=== PATIENT | male | born 1935 | race Caucasian/White ===

== ENCOUNTER 2016-09-14 16:23 | Inpatient (IN) | payer MEDICARE, OTHER ==
--- NOTE | 2016-09-14 16:39 | EDM.PDOC ---
ED HPI GENERAL MEDICAL PROBLEM - General Stated Complaint: LEG PAIN, CAN'T GO TO THE BATHROOM Time Seen by Provider: 09/14/16 16:23 Source of Information: Reports: Patient, Family History Limitations: Reports: Altered Mental Status, Physical Impairment - History of Present Illness INITIAL COMMENTS - FREE TEXT/NARRATIVE: 81 years old w m with a history of MD came to the ed because he had no BM for one week and was not able to urinate for one week. Pt is a poor historian. HPI was given by his SO. Pt has a gastric feeding tube for aspiration prevention. No other acute medical issues at this time. Onset: Gradual Onset Date: 09/07/16 Onset Time: 09:00 Duration: Day(s):, Getting Worse Location: Reports: Abdomen Quality: Reports: Pressure Severity: Moderate Improves with: Reports: None Worsens with: Reports: None Associated Symptoms: Reports: Loss of Appetite, Weakness Bilateral Lower Back Pain Score (Numeric/FACES): 4 - Related Data Allergies Allergy/AdvReac Type Severity Reaction Status Date / Time amlodipine besylate Allergy Edema Verified 09/14/16 19:21 [From [facility]] Home Meds: Home Meds Aspirin 325 mg PO DAILY 01/28/14 [History] Carvedilol 50 mg PO BIDMEALS 01/29/14 [History] Levothyroxine Sodium [Synthroid] 75 mcg PO DAILY 01/29/14 [History] Multivitamin [Daily Multiple Vitamin] 1 tab PO DAILY 01/29/14 [History] guaiFENesin [Mucinex] 600 mg PO BID PRN 01/29/14 [History] Amitriptyline [Elavil] 50 mg PO BEDTIME 11/06/15 [History] Carboxymethylcellulose Sodium [Refresh Tears] 1 drop EYEBOTH DAILY 11/06/15 [ History] Cyclobenzaprine [Flexeril] 5 mg PO BID PRN 11/06/15 [History] Lisinopril 30 mg PO DAILY 11/06/15 [History] metFORMIN [Glucophage] 850 mg GTUBE 799,1999 #60 tablet 02/12/16 [Rx] Tamsulosin [Flomax] 0.8 mg PO DAILY 04/17/16 [History] Gabapentin [Neurontin] 1,200 mg PO DAILY@16 09/14/16 [History] Gabapentin [Neurontin] 600 mg GTUBE BID 09/14/16 [History] Acetaminophen [Tylenol Extra Strength] 1,000 mg PO BID 09/15/16 [History] Acetaminophen [Tylenol Extra Strength] 500 mg PO DAILY@1400 09/15/16 [History] Past Medical History HEENT History: Reports: Cataract, Impaired Vision Cardiovascular History: Reports: Hypertension Respiratory History: Reports: None Gastrointestinal History: Reports: None Genitourinary History: Reports: BPH, Retention, Urinary Musculoskeletal History: Reports: None Neurological History: Reports: None Psychiatric History: Reports: None Endocrine/Metabolic History: Reports: Diabetes, Type II, Hypothyroidism Hematologic History: Reports: None Immunologic History: Reports: None Oncologic (Cancer) History: Reports: None Dermatologic History: Reports: None - Infectious Disease History Infectious Disease History: Reports: Chicken Pox, Measles, Mumps, Shingles - Past Surgical History HEENT Surgical History: Reports: Cataract Surgery, Naso-Sinus Surgery GI Surgical History: Reports: Colonoscopy, EGD, Other (See Below) Neurological Surgical History: Reports: Laminectomy, Other (See Below) Musculoskeletal Surgical History: Reports: Other (See Below) Social & Family History - Family History Family Medical History: Noncontributory - Tobacco Use Smoking Status *Q: Never Smoker Second Hand Smoke Exposure: No - Alcohol Use Days Per Week of Alcohol Use: 1 Number of Drinks Per Day: 1 Total Drinks Per Week: 1 - Recreational Drug Use Recreational Drug Use: No Drug Use in Last 12 Months: No - Living Situation & Occupation Occupation: Retired ED ROS GENERAL - Review of Systems Review Of Systems: Unable To Obtain ED EXAM, GI/ABD - Physical Exam Exam: See Below Exam Limited By: Physical Impairment General Appearance: Alert, WD/WN, Mild Distress Eyes: Bilateral: Normal Appearance Ears: Normal External Exam Nose: Normal Inspection Throat/Mouth: Normal Inspection, Normal Lips Head: Atraumatic, Normocephalic Neck: Normal Inspection, Supple, Non-Tender Respiratory/Chest: No Respiratory Distress, Lungs Clear Cardiovascular: Normal Peripheral Pulses GI/Abdominal: Hyperactive Bowel Sounds, Tenderness, Distention, Other (feeding tube in place) (Male) Exam: No Hernia, Deferred Rectal (Males) Exam: Deferred Back Exam: Normal Inspection, Full Range of Motion Extremities: Normal Inspection Neurological: Alert, Oriented, CN II-XII Intact, Normal Cognition, Other (H/O muscular dystrophy Dx'd 2012) Psychiatric: Normal Affect, Normal Mood Skin Exam: Warm Lymphatic: No Adenopathy Course - Vital Signs Text/Narrative:: 81 years old w m with a history of MS came to the ed because he had no BM for one week and was not able to urinate for one week. Pt is a poor historian. HPI was given by his SO. Pt has a gastric feeding tube for aspiration prevention. No other acute medical issues at this time. PE: Tender, distended bowel, gastric feeding tube in place, undbel to ambulate due to h/o Muscular dystrophy. Imaging: abdomen flat/upright: Severe constipation. CXR: NAD Labs: WBV 23K no left shift BUN 35 Cr 0.9 UA is pending Lactic acid result is pending INR 1.14 Impression: H/O MD, Urinary retention, severe constipation, elevated WBC (cause not determined), unable to ambulate, weakness Tx: Hamm placement, Levoquin Reexam: nurs and myself were not able to place a hamm catheter, Consultation: Dr. Cottrell, surgeon, was consulted. He will attempt to place a Hamm catheter or will place a suprapubic catheter Plan: admit to de dios Last Recorded V/S: Last Vital Signs Temp 36.7 C 09/15/16 08:26 Pulse 75 09/15/16 09:21 Resp 18 09/15/16 08:26 BP 105/39 L 09/15/16 09:25 Pulse Ox 96 09/15/16 08:26 - Orders/Labs/Meds Orders: Active Orders 24 hr Category Date Time Status Hamm Catheter Insertion [Insert Urinary Catheter] [OM. Care 09/14/16 17:45 Ordered PC] Q24H Urinary Catheter Assessment [RC] QSHIFT Care 09/14/16 17:38 Active Abdomen 2V AP Flat Upright [CR] Stat Exams 09/14/16 16:35 Taken CXR [Chest 1V Frontal] [CR] Stat Exams 09/14/16 18:16 Taken CULTURE BLOOD [BC] Urgent Lab 09/14/16 18:25 Received CULTURE BLOOD [BC] Urgent Lab 09/14/16 18:30 Received Blood Culture x2 Reflex Set [OM.PC] Urgent Oth 09/14/16 18:18 Ordered Medication Orders Acetaminophen (Tylenol Extra Strength) 1,000 mg PO BID OWEN Acetaminophen (Tylenol Extra Strength) 500 mg PO DAILY@1400 [facility] Amitriptyline HCl (Elavil) 50 mg GTUBE BEDTIME [facility] Artificial Tears (Refresh Tears 0.5%) 0 ml EYEBOTH DAILY [facility] Last Admin: 09/15/16 09:26 Dose: 1 drop Aspirin (Aspirin) 325 mg GTUBE DAILY [facility] Last Admin: 09/15/16 09:23 Dose: 325 mg Carvedilol (Coreg) 50 mg GTUBE BIDMEALS [facility] Last Admin: 09/15/16 09:21 Dose: 50 mg Cyclobenzaprine HCl (Flexeril) 5 mg GTUBE BID PRN PRN Reason: MUSCLE SPASMS Gabapentin (Neurontin) 600 mg GTUBE BID [facility] Last Admin: 09/15/16 09:25 Dose: 600 mg Gabapentin (Neurontin) 1,200 mg GTUBE DAILY@1400 [facility] Guaifenesin (Mucinex) 600 mg PO BID PRN PRN Reason: Congestion Last Admin: 09/15/16 00:47 Dose: 600 mg Levofloxacin/Dextrose 500 mg/ (Premix) 100 mls @ 100 mls/hr IV Q24H [facility] Last Admin: 09/14/16 23:03 Dose: 100 mls/hr Sodium Chloride (Normal Saline) 250 mls @ 100 mls/hr IV ASDIRECTED [facility] Last Admin: 09/14/16 23:33 Dose: 100 mls/hr Levothyroxine Sodium (Levothyroxine) 75 mcg GTUBE ACBREAKFAST [facility] Last Admin: 09/15/16 09:21 Dose: 75 mcg Lisinopril (Prinivil) 30 mg GTUBE DAILY [facility] Last Admin: 09/15/16 09:25 Dose: 30 mg Metformin HCl (Glucophage) 850 mg GTUBE 0800,1999 [facility] Last Admin: 09/15/16 09:23 Dose: 850 mg Multivitamins/Minerals/Vitamin C (Tab-A-Ashlee) 1 tab PO DAILY [facility] Last Admin: 09/15/16 09:27 Dose: 1 tab Sodium Chloride (Saline Flush) 10 ml FLUSH ASDIRECTED PRN PRN Reason: Keep Vein Open Last Admin: 09/14/16 23:32 Dose: 10 ml Tamsulosin HCl (Flomax) 0.8 mg PO DAILY [facility] Last Admin: 09/15/16 09:24 Dose: 0.8 mg Labs: Laboratory Tests 09/14/16 09/14/16 09/14/16 Range/Units 16:45 16:45 16:45 WBC 25.4 H (4.5-12.0) X10-3/uL RBC 5.03 (4.30-5.75) x10(6)uL Hgb 15.2 (11.5-15.5) g/dL Hct 45.6 (30.0-51.3) % MCV 90.6 (80-96) fL MCH 30.2 (27.7-33.6) pg MCHC 33.3 (32.2-35.4) g/dL RDW 13.8 (11.5-15.5) % Plt Count 244 (125-369) X10(3)uL MPV 8.1 (7.4-10.4) fL Add Manual Diff Yes Neutrophils % (Manual) 69 (46-82) % Band Neutrophils % 8 H (0-6) % Lymphocytes % (Manual) 8 L (13-37) % Monocytes % (Manual) 15 H (4-12) % PT 11.5 H (8.7-11.1) INR 1.14 H (0.89-1.13) Sodium 139 (135-145) mmol/L Potassium 4.0 (3.5-5.3) mmol/L Chloride 97 L (100-110) mmol/L Carbon Dioxide 31 H (23-29) mmol/L BUN 35 H D (8-23) mg/dL Creatinine 0.9 (0.6-1.3) mg/dL Est Cr Clr Drug Dosing 67.59 mL/min Estimated GFR (MDRD) > 60 (>60) BUN/Creatinine Ratio 38.9 H (9-20) Glucose 183 H (80-116) mg/dL Lactic Acid (0.5-2.2) mmol/L Calcium 9.8 (8.6-10.2) mg/dL B-Natriuretic Peptide (0-100) pg/mL 09/14/16 09/14/16 Range/Units 16:45 18:30 WBC (4.5-12.0) X10-3/uL RBC (4.30-5.75) x10(6)uL Hgb (11.5-15.5) g/dL Hct (30.0-51.3) % MCV (80-96) fL MCH (27.7-33.6) pg MCHC (32.2-35.4) g/dL RDW (11.5-15.5) % Plt Count (125-369) X10(3)uL MPV (7.4-10.4) fL Add Manual Diff Neutrophils % (Manual) (46-82) % Band Neutrophils % (0-6) % Lymphocytes % (Manual) (13-37) % Monocytes % (Manual) (4-12) % PT (8.7-11.1) INR (0.89-1.13) Sodium (135-145) mmol/L Potassium (3.5-5.3) mmol/L Chloride (100-110) mmol/L Carbon Dioxide (23-29) mmol/L BUN (8-23) mg/dL Creatinine (0.6-1.3) mg/dL Est Cr Clr Drug Dosing mL/min Estimated GFR (MDRD) (>60) BUN/Creatinine Ratio (9-20) Glucose (80-116) mg/dL Lactic Acid 3.0 H (0.5-2.2) mmol/L Calcium (8.6-10.2) mg/dL B-Natriuretic Peptide 261 H (0-100) pg/mL Meds: Medications Generic Name Dose Route Start Last Admin Trade Name Freq PRN Reason Stop Dose Admin Acetaminophen 1,000 mg 09/15/16 21:00 Tylenol Extra Strength PO BID OWEN Acetaminophen 500 mg 09/15/16 14:00 Tylenol Extra Strength PO DAILY@1400 [facility] Amitriptyline HCl 50 mg 09/15/16 21:00 Elavil GTUBE BEDTIME [facility] Artificial Tears 0 ml 09/15/16 09:00 09/15/16 09:26 Refresh Tears 0.5% EYEBOTH 1 drop DAILY [facility] Administration Aspirin 325 mg 09/15/16 09:00 09/15/16 09:23 Aspirin GTUBE 325 mg DAILY [facility] Administration Carvedilol 50 mg 09/15/16 08:00 09/15/16 09:21 Coreg GTUBE 50 mg BIDMEALS [facility] Administration Cyclobenzaprine HCl 5 mg 09/15/16 09:18 Flexeril GTUBE BID PRN MUSCLE SPASMS Gabapentin 600 mg 09/15/16 09:00 09/15/16 09:25 Neurontin GTUBE 600 mg BID OW[facility] Administration Gabapentin 1,200 mg 09/15/16 14:00 Neurontin GTUBE DAILY@1400 [facility] Guaifenesin 600 mg 09/15/16 00:00 09/15/16 00:47 Mucinex PO 600 mg BID PRN Administration Congestion Levofloxacin/Dextrose 500 mg/ 100 mls @ 100 mls/hr 09/14/16 22:36 09/14/16 23 :03 Premix IV 100 mls/hr Q24H [facility] Administration Sodium Chloride 250 mls @ 100 mls/hr 09/14/16 23:15 09/14/16 23:33 Normal Saline IV 100 mls/hr ASDIRECTED [facility] Administration Levothyroxine Sodium 75 mcg 09/15/16 07:30 09/15/16 09:21 Levothyroxine GTUBE 75 mcg ACBREAKFAST [facility] Administration Lisinopril 30 mg 09/15/16 09:00 09/15/16 09:25 Prinivil GTUBE 30 mg DAILY [facility] Administration Metformin HCl 850 mg 09/15/16 00:26 09/15/16 09:23 Glucophage GTUBE 850 mg [facility] Administration Multivitamins/Minerals/Vitamin C 1 tab 09/15/16 09:00 09/15/16 09:27 Tab-A-Ashlee PO 1 tab DAILY [facility] Administration Sodium Chloride 10 ml 09/14/16 23:11 09/14/16 23:32 Saline Flush FLUSH 10 ml ASDIRECTED PRN Administration Keep Vein Open Tamsulosin HCl 0.8 mg 09/15/16 09:00 09/15/16 09:24 Flomax PO 0.8 mg DAILY [facility] Administration Discontinued Medications Generic Name Dose Route Start Last Admin Trade Name Freq PRN Reason Stop Dose Admin Acetaminophen 1,000 mg 09/15/16 09:00 09/15/16 09:27 Tylenol Extra Strength GTUBE 1,000 mg 899,1399,1999 [facility] Administration Amitriptyline HCl 50 mg 09/15/16 21:00 Elavil PO BEDTIME [facility] Aspirin 325 mg 09/15/16 09:00 Aspirin PO DAILY [facility] Carvedilol 50 mg 09/15/16 08:00 Coreg PO BIDMEALS OWEN Carvedilol 50 mg 09/15/16 00:24 09/15/16 00:42 Coreg PO 50 mg BIDMEALS [facility] Administration Carvedilol Confirm 09/15/16 00:40 09/15/16 01:23 Coreg Administered 09/15/16 00:41 Not Given Dose 25 mg .ROUTE .STK-MED ONE Cyclobenzaprine HCl 5 mg 09/15/16 00:00 Flexeril PO BID PRN MUSCLE SPASMS Cyclobenzaprine HCl 5 mg 09/15/16 00:32 09/15/16 00:47 Flexeril GTUBE 5 mg BID PRN Administration MUSCLE SPASMS Gabapentin 1,200 mg 09/15/16 09:00 Neurontin PO DAILY [facility] Guaifenesin 600 mg 09/15/16 09:00 09/15/16 09:25 Mucinex PO Not Given BID [facility] Levofloxacin/Dextrose 500 mg/ 100 mls @ 100 mls/hr 09/14/16 18:30 09/14/16 23 :46 Premix IV Not Given Q24H [facility] Lactulose 20 gm 09/15/16 10:30 Cephulac PO 09/15/16 10:31 ONETIME ONE Levothyroxine Sodium 75 mcg 09/15/16 09:00 Levothyroxine PO DAILY [facility] Lidocaine HCl 5 ml 09/14/16 19:00 09/14/16 19:15 Xylocaine 2% Jelly MUCMEM 09/14/16 19:01 5 ml ONETIME ONE Administration Lidocaine HCl 5 ml 09/14/16 19:40 09/14/16 20:30 Xylocaine 2% Jelly MUCMEM 09/14/16 19:41 5 ml ONETIME ONE Administration Lidocaine HCl Confirm 09/14/16 19:41 09/14/16 23:46 Xylocaine 2% Jelly Administered 09/14/16 19:42 Not Given Dose 5 ml .ROUTE .STK-MED ONE Lisinopril 30 mg 09/15/16 09:00 Prinivil PO DAILY [facility] Magnesium Citrate 296 ml 09/14/16 18:54 09/14/16 19:15 Citrate Of Magnesia PO 09/14/16 18:55 296 ml ONETIME ONE Administration Metformin HCl 850 mg 09/15/16 08:00 Glucophage GTUBE 0800,2000 [facility] Metformin HCl 850 mg 09/15/16 00:54 09/15/16 01:07 Glucophage PO 09/15/16 00:55 850 mg NOW STA Administration Departure - Departure Time of Disposition: 18:26 Disposition: Admitted As Inpatient 67 Condition: fair Clinical Impression: Urinary retention, Prostate enlargement, Muscular dystrophy, Aspiration pneumonia Constipation Qualifiers: Constipation type: slow transit constipation Qualified Code(s): K59.01 - Slow transit constipation - Discharge Information - My Orders Last 24 Hours: My Active Orders 09/14/16 16:35 Abdomen 2V AP Flat Upright [CR] Stat 09/14/16 17:38 Urinary Catheter Assessment [RC] QSHIFT 09/14/16 17:45 Hamm Catheter Insertion [Insert Urinary Catheter] [OM.PC] Q24H 09/14/16 18:16 CXR [Chest 1V Frontal] [CR] Stat 09/14/16 18:18 Blood Culture x2 Reflex Set [OM.PC] Urgent 09/14/16 18:25 CULTURE BLOOD [BC] Urgent 09/14/16 18:30 CULTURE BLOOD [BC] Urgent - Assessment/Plan Last 24 Hours: My Active Orders 09/14/16 16:35 Abdomen 2V AP Flat Upright [CR] Stat 09/14/16 17:38 Urinary Catheter Assessment [RC] QSHIFT 09/14/16 17:45 Hamm Catheter Insertion [Insert Urinary Catheter] [OM.PC] Q24H 09/14/16 18:16 CXR [Chest 1V Frontal] [CR] Stat 09/14/16 18:18 Blood Culture x2 Reflex Set [OM.PC] Urgent 09/14/16 18:25 CULTURE BLOOD [BC] Urgent 09/14/16 18:30 CULTURE BLOOD [BC] Urgent
[2016-09-14] MEDS ORDERED: Levofloxacin/Dextrose 5%-Water 500 MG in Premix Bag 1 BAG IV SCH (18:30)
[2016-09-14] MEDS ORDERED: Magnesium Citrate Solution 296 ML Bottle PO ONE (18:54)
[2016-09-14] MEDS ORDERED: Lidocaine 2% Jelly 5 ML Urojet MUCMEM ONE ×3 (19:00→19:40)
[2016-09-14] MEDS ORDERED: Lidocaine 2% Jelly 5 ML Urojet ONE (19:41)
[2016-09-14] MEDS: Levofloxacin/Dextrose 5%-Water 500 MG in Premix Bag 1 BAG IV SCH (23:03)
[2016-09-14] MEDS: Sodium Chloride 0.9% 10 ML Syringe FLUSH PRN (23:32)
[2016-09-14] MEDS: Sodium Chloride 0.9% 250 ML IV SCH (23:33)
[2016-09-15] MEDS ORDERED: guaiFENesin 600 MG Tab.ER PO PRN
[2016-09-15] MEDS ORDERED: Cyclobenzaprine 10 MG Tab PO PRN
[2016-09-15] MEDS ORDERED: Carvedilol 25 MG Tab PO SCH ×2 (00:24→08:00)
[2016-09-15] MEDS ORDERED: Cyclobenzaprine 10 MG Tab GTUBE PRN (00:32)
[2016-09-15] MEDS ORDERED: Carvedilol 25 MG Tab ONE (00:40)
--- NOTE | 2016-09-15 01:10 | ER ---
DATE OF PROCEDURE: 09/14/2016 This 81-year-old male presented to the emergency room with complaints of urinary retention. Attempts were made by the emergency room staff and emergency room physician to place a Sunshine catheter and despite multiple attempts, this was unsuccessful. I was called to place a urinary catheter for this patient. Examination shows a pleasant elderly male. He is having some lower abdominal discomfort, but is in no acute distress. His abdomen shows lower abdominal distention consistent with a dilated bladder. Attempts were made using sterile technique to insert urinary catheter via the penis. Attempts with a 14-Cameroonian regular catheter and also a coude catheter were attempted, but the catheters would advance to the level of the prostate and would not advance further. The decision was then made to place a suprapubic catheter. Procedure is explained to the patient and he agreed to have this performed. The lower abdomen was prepped with Betadine and then local infiltration of the skin with the Xylocaine is carried out. A small incision was made in the lower midline just above the symphysis pubis. An attempt was first made using a Adjug suprapubic catheter kit. Once the kit had been properly assembled, it is inserted directly into the bladder and even though the bladder was entered, the central obturator would not withdraw from the catheter, so this kit was abandoned. A mSpot suprapubic catheter insertion kit was then selected. The kit was assembled with the 12- Cameroonian Sunshine catheter placed into the advancing obturator. This was then directed through the skin suprapubically into the bladder and once the bladder had been accessed, the advancing obturator needle was removed as well as the central stabilizing device. The Sunshine balloon is inflated and the catheter was noted to drain cloudy urine. Irrigation of the catheter was then carried out with sterile saline and the catheter was noted to irrigate and aspirate easily removing additional cloudy urine. The catheter was then taped to the skin and the patient is admitted and will be cared for per the orders of the hospitalist. /[id number] CASPER/GIGI BOATENG
[2016-09-15] MEDS ORDERED: Gabapentin 600 MG Tab PO SCH (09:00)
[2016-09-15] MEDS ORDERED: Lisinopril 20 MG Tab PO SCH (09:00)
[2016-09-15] MEDS ORDERED: Levothyroxine 75 MCG Tab PO SCH (09:00)
[2016-09-15] MEDS ORDERED: Aspirin 325 MG Tab PO SCH (09:00)
[2016-09-15] MEDS ORDERED: Lisinopril 20 MG Tab GTUBE SCH (09:00)
[2016-09-15] MEDS ORDERED: Gabapentin 600 MG Tab GTUBE SCH (09:00)
[2016-09-15] MEDS ORDERED: Acetaminophen 500 MG Tab GTUBE SCH (09:00)
[2016-09-15] MEDS ORDERED: guaiFENesin 600 MG Tab.ER PO SCH (09:00)
[2016-09-15] MEDS ORDERED: Cyclobenzaprine 5 MG Tab GTUBE PRN (09:18)
[2016-09-15] MEDS: Levothyroxine 75 MCG Tab GTUBE SCH (09:21)
[2016-09-15] MEDS: Carvedilol 25 MG Tab GTUBE SCH ×2 (09:21→17:36)
[2016-09-15] MEDS: Aspirin 325 MG Tab GTUBE SCH (09:23)
[2016-09-15] MEDS: Tamsulosin 0.4 MG Cap.ER PO SCH (09:24)
[2016-09-15] MEDS: Lisinopril 10 MG Tab GTUBE SCH (09:25)
[2016-09-15] MEDS: Gabapentin 600 MG Tab GTUBE SCH ×3 (09:25→21:02)
[2016-09-15] MEDS: Carboxymethylcellulose Sodium 0.5% Ophth Soln 15 ML Bottle EYEBOTH SCH (09:26)
[2016-09-15] MEDS: Multivitamin Tab PO SCH (09:27)
--- NOTE | 2016-09-15 10:27 | PCM.HP ---
H&P History of Present Illness - General Date of Service: 09/15/16 Admit Problem/Dx: Admission Diagnosis/Problem Admission Diagnosis/Problem Urinary tract obstruction Source of Information: Patient History Limitations: Reports: No Limitations - History of Present Illness Initial Comments - Free Text/Narative: 81-year-old male brought in because of acute urinary retention. The brought him in because of pelvic pain and inability to urinate. He has a history of BPH. He also complains of constipation for more than a week.Has a h/ o chronic constipation for more than 2 years. He had a colonoscopy about 10 years ago that was normal ;he was told he does not need another one. He has no fever or chills but in the emergency room an attempt to Sunshine catheter failed necessitating use of a suprapubic catheter. His urine showed packed white cells suggestive of infection, therefore is being admitted for IV antibiotics. He has no fever chills or vomiting. He has a history of laminectomy of the lumbar spine due to stenosis and has difficulty with ambulation and strength of his lower extremities. In addition,he has difficulty with swallowing for an unclear reason and he had a PEG tube in place for tube feedings.Has well controlled DM,and HTN Bilateral Lower Back Pain Score (Numeric/FACES): 4 - Related Data Allergies/Adverse Reactions: Allergies Allergy/AdvReac Type Severity Reaction Status Date / Time amlodipine besylate Allergy Edema Verified 09/14/16 19:21 [From [facility]] Home Medications: Home Meds Aspirin 325 mg PO DAILY 01/28/14 [History] Carvedilol 50 mg PO BIDMEALS 01/29/14 [History] Levothyroxine Sodium [Synthroid] 75 mcg PO DAILY 01/29/14 [History] Multivitamin [Daily Multiple Vitamin] 1 tab PO DAILY 01/29/14 [History] guaiFENesin [Mucinex] 600 mg PO BID PRN 01/29/14 [History] Amitriptyline [Elavil] 50 mg PO BEDTIME 11/06/15 [History] Carboxymethylcellulose Sodium [Refresh Tears] 1 drop EYEBOTH DAILY 11/06/15 [ History] Cyclobenzaprine [Flexeril] 5 mg PO BID PRN 11/06/15 [History] Lisinopril 30 mg PO DAILY 11/06/15 [History] metFORMIN [Glucophage] 850 mg GTUBE 0800,1999 #60 tablet 02/12/16 [Rx] Tamsulosin [Flomax] 0.8 mg PO DAILY 04/17/16 [History] Gabapentin [Neurontin] 1,200 mg PO DAILY@16 09/14/16 [History] Gabapentin [Neurontin] 600 mg GTUBE BID 09/14/16 [History] Acetaminophen [Tylenol Extra Strength] 1,000 mg PO BID 09/15/16 [History] Acetaminophen [Tylenol Extra Strength] 500 mg PO DAILY@1400 09/15/16 [History] Past Medical History HEENT History: Reports: Cataract, Impaired Vision Cardiovascular History: Reports: Hypertension Respiratory History: Reports: None Gastrointestinal History: Reports: Hemorrhoids Genitourinary History: Reports: BPH, Retention, Urinary, Other (See Below) Other Genitourinary History: supra pubic cath put in today 09/14/16 Musculoskeletal History: Reports: Arthritis, Muscular Dystrophy Neurological History: Reports: None Psychiatric History: Reports: Depression Endocrine/Metabolic History: Reports: Diabetes, Type II, Hypothyroidism Hematologic History: Reports: None Immunologic History: Reports: None Oncologic (Cancer) History: Reports: None Dermatologic History: Reports: None - Infectious Disease History Infectious Disease History: Reports: Chicken Pox, Measles, Mumps, Shingles - Past Surgical History Head Surgeries/Procedures: Reports: None HEENT Surgical History: Reports: Cataract Surgery, Naso-Sinus Surgery Cardiovascular Surgical History: Reports: None Respiratory Surgical History: Reports: None GI Surgical History: Reports: Appendectomy, Colonoscopy, EGD, Other (See Below) Other GI Surgeries/Procedures: has feeding tube. Supra pubic cath put in today Male Surgical History: Reports: None Endocrine Surgical History: Reports: None Neurological Surgical History: Reports: Laminectomy Musculoskeletal Surgical History: Reports: Other (See Below) Other Musculoskeletal Surgeries/Procedures:: back surgery. Back injected two weeks ago Oncologic Surgical History: Reports: None Dermatological Surgical History: Reports: None Social & Family History - Family History Family Medical History: Noncontributory - Tobacco Use Smoking Status *Q: Never Smoker Second Hand Smoke Exposure: No - Caffeine Use Caffeine Use: Reports: Coffee - Alcohol Use Days Per Week of Alcohol Use: 1 Number of Drinks Per Day: 1 Total Drinks Per Week: 1 - Recreational Drug Use Recreational Drug Use: No Drug Use in Last 12 Months: No - Living Situation & Occupation Occupation: Retired H&P Review of Systems - Review of Systems: Review Of Systems: ROS reveals no pertinent complaints other than HPI. Exam - Exam Exam: See Below - Vital Signs Vital Signs: Last Vital Signs Temp 98.1 F 09/15/16 08:26 Pulse 75 09/15/16 09:21 Resp 18 09/15/16 08:26 BP 105/39 L 09/15/16 09:25 Pulse Ox 96 09/15/16 08:26 Weight: 86.228 kg - Exam General: Alert, Oriented, 4 HEENT: No: Mucosa Moist & [place] Neck: Supple, Trachea Midline, 2 Lungs: Clear to Auscultation, Normal Respiratory Effort Cardiovascular: Regular Rate, Regular Rhythm Abdomen: Distention, Hypoactive Bowel Sounds. No: McBurney's Sign, Psoas Sign (Male) Exam: No Hernia, Normal Inspection, Normal Prostate, Circumcised Rectal (Males) Exam: Deferred Back Exam: Normal Inspection Extremities: Normal Inspection Skin: Warm Neurological: Cranial Nerves Intact, Reflexes Equal Bilateral Neuro Extensive - Mental Status: Alert, Oriented x3, Normal Mood/Affect, Memory Intact Neuro Extensive - Motor, Sensory, Reflexes: Motor/Sensory Deficits Psychiatric: Alert, Normal Affect, Normal Mood - Patient Data Lab Results last 24 hrs: Laboratory Results - last 24 hr 09/14/16 Range/Units 23:46 Urine Color Red (YELLOW) Urine Appearance Turbid (CLEAR) Urine pH 6.0 (5.0-6.5) Ur Specific [place] 1.010 (1.010-1.025) Urine Protein 500 H (NEGATIVE) mg/dL Urine Glucose (UA) Normal (NEGATIVE) mg/dL Urine Ketones Negative (NEGATIVE) mg/dL Urine Occult Blood Large H (NEGATIVE) Urine Nitrite Negative (NEGATIVE) Urine Bilirubin Negative (NEGATIVE) Urine Urobilinogen Normal (NEGATIVE) mg/dL Ur Leukocyte Esterase Large H (NEGATIVE) Urine RBC Packed H (0) Urine WBC Packed H (0) Ur Squamous Epith Cells (NS,R,O) Result Diagrams: 09/14/16 16:45 09/14/16 16:45 *Q Meaningful Use (ADM) - VTE *Q VTE Criteria *Q: - Stroke *Q Stroke Criteria *Q: - AMI *Q AMI Criteria *Q: - Problem List (1) UTI (urinary tract infection) SNOMED Code(s): 22726324 ICD Code: N39.0 - URINARY TRACT INFECTION, SITE NOT SPECIFIED Status: Acute Priority: High Current Visit: Yes Qualifiers: Hematuria presence: with hematuria (2) Constipation SNOMED Code(s): 70489107 ICD Code: K59.00 - CONSTIPATION, UNSPECIFIED Status: Acute Current Visit : Yes Qualifiers: Constipation type: slow transit constipation Qualified Code(s): K59.01 - Slow transit constipation (3) Prostate enlargement SNOMED Code(s): 825112991 ICD Code: N40.0 - BENIGN PROSTATIC HYPERPLASIA WITHOUT LOWER URINRY TRACT SYMP Status: Acute Priority: Medium Current Visit: Yes (4) Urinary retention SNOMED Code(s): 534326738 ICD Code: R33.9 - RETENTION OF URINE, UNSPECIFIED Status: Acute Current Visit: Yes (5) Diabetes type 2, controlled SNOMED Code(s): 19979951 ICD Code: E11.9 - TYPE 2 DIABETES MELLITUS WITHOUT COMPLICATIONS Status: Chronic Priority: Medium Current Visit: No Problem Details: stable Qualifiers: Diabetes mellitus complication status: without complication 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 continue current managment. Qualifiers: Hypertension type: essential hypertension Qualified Code(s): I10 - Essential (primary) hypertension (7) Hypothyroidism SNOMED Code(s): 19576415 ICD Code: E03.9 - HYPOTHYROIDISM, UNSPECIFIED Status: Acute Current Visit : No Problem Details: on replacement Qualifiers: Hypothyroidism type: acquired Qualified Code(s): E03.9 - Hypothyroidism, unspecified (8) S/P laminectomy SNOMED Code(s): 918813420, 724650203, 548600201 ICD Code: Z98.89 - OTHER SPECIFIED POSTPROCEDURAL STATES * DO NOT USE * Status: Acute Priority: Low Current Visit: No (9) Swallowing difficulty SNOMED Code(s): 49126312, 780047726 ICD Code: R13.10 - DYSPHAGIA, UNSPECIFIED Status: Acute Current Visit: No Problem Details: PEG tube in place Qualifiers: Dysphagia type: unspecified Qualified Code(s): R13.10 - Dysphagia, unspecified Problem List Initiated/Reviewed/Updated: Yes Orders Last 24hrs: Active Orders 24 hr Category Date Time Status Enteral Feedings [RC] Click to Edit Care 09/15/16 00:05 Active BASIC METABOLIC PANEL,BMP [CHEM] AM Lab 09/16/16 05:11 Ordered CBC WITH AUTO DIFF [HEME] AM Lab 09/16/16 05:11 Ordered CULTURE URINE [RM] Routine Lab 09/15/16 00:03 Received Amitriptyline [Elavil] Med 09/15/16 21:00 Active 50 mg GTUBE BEDTIME Aspirin Med 09/15/16 09:00 Active 325 mg GTUBE DAILY Carboxymethylcellulose Sodium [Refresh Tears 0.5%] Med 09/15/16 09:00 Active 0 ml EYEBOTH DAILY Carvedilol [Coreg] Med 09/15/16 08:00 Active 50 mg GTUBE BIDMEALS Cyclobenzaprine [Flexeril] Med 09/15/16 09:18 Active 5 mg GTUBE BID PRN Gabapentin [Neurontin] Med 09/15/16 14:00 Active 1,200 mg GTUBE DAILY@1400 Gabapentin [Neurontin] Med 09/15/16 09:00 Active 600 mg GTUBE BID Levofloxacin/Dextrose 5%-Water [Levaquin in D5W 500 MG/ Med 09/14/16 22:36 Active 100 ML] 500 mg Premix Bag 1 bag IV Q24H Levothyroxine Med 09/15/16 07:30 Active 75 mcg GTUBE ACBREAKFAST Lisinopril [Prinivil] Med 09/15/16 09:00 Active 30 mg GTUBE DAILY Multivitamins [Tab-A-Ashlee] Med 09/15/16 09:00 Active 1 tab PO DAILY Sodium Chloride 0.9% [Normal Saline] 250 ml Med 09/14/16 23:15 Active IV ASDIRECTED Sodium Chloride 0.9% [Saline Flush] Med 09/14/16 23:11 Active 10 ml FLUSH ASDIRECTED PRN Tamsulosin [Flomax] Med 09/15/16 09:00 Active 0.8 mg PO DAILY guaiFENesin [Mucinex] Med 09/15/16 00:00 Active 600 mg PO BID PRN metFORMIN [Glucophage] Med 09/15/16 00:26 Active 850 mg GTUBE Medication Orders Amitriptyline HCl (Elavil) 50 mg GTUBE BEDTIME [facility] Artificial Tears (Refresh Tears 0.5%) 0 ml EYEBOTH DAILY [facility] Last Admin: 09/15/16 09:26 Dose: 1 drop Aspirin (Aspirin) 325 mg GTUBE DAILY [facility] Last Admin: 09/15/16 09:23 Dose: 325 mg Carvedilol (Coreg) 50 mg GTUBE BIDMEALS [facility] Last Admin: 09/15/16 09:21 Dose: 50 mg Cyclobenzaprine HCl (Flexeril) 5 mg GTUBE BID PRN PRN Reason: MUSCLE SPASMS Gabapentin (Neurontin) 600 mg GTUBE BID [facility] Last Admin: 09/15/16 09:25 Dose: 600 mg Gabapentin (Neurontin) 1,200 mg GTUBE DAILY@1400 [facility] Guaifenesin (Mucinex) 600 mg PO BID PRN PRN Reason: Congestion Last Admin: 09/15/16 00:47 Dose: 600 mg Levofloxacin/Dextrose 500 mg/ (Premix) 100 mls @ 100 mls/hr IV Q24H [facility] Last Admin: 09/14/16 23:03 Dose: 100 mls/hr Sodium Chloride (Normal Saline) 250 mls @ 100 mls/hr IV ASDIRECTED [facility] Last Admin: 09/14/16 23:33 Dose: 100 mls/hr Levothyroxine Sodium (Levothyroxine) 75 mcg GTUBE ACBREAKFAST [facility] Last Admin: 09/15/16 09:21 Dose: 75 mcg Lisinopril (Prinivil) 30 mg GTUBE DAILY [facility] Last Admin: 09/15/16 09:25 Dose: 30 mg Metformin HCl (Glucophage) 850 mg GTUBE [facility] Last Admin: 09/15/16 09:23 Dose: 850 mg Multivitamins/Minerals/Vitamin C (Tab-A-Ashlee) 1 tab PO DAILY [facility] Last Admin: 09/15/16 09:27 Dose: 1 tab Sodium Chloride (Saline Flush) 10 ml FLUSH ASDIRECTED PRN PRN Reason: Keep Vein Open Last Admin: 09/14/16 23:32 Dose: 10 ml Tamsulosin HCl (Flomax) 0.8 mg PO DAILY [facility] Last Admin: 09/15/16 09:24 Dose: 0.8 mg Assessment/Plan Comment:: I agree with use of Levaquin IV, and IV fluid resuscitation. Add lactulose 10- 15 mL 3 times a day for constipation. His home medications were continued and I plan to repeat CBC basic metabolic profile and a TSH in the morning.
[2016-09-15] MEDS ORDERED: Lactulose Soln 10 GM/15 ML 30 ML UD Cup PO ONE (10:30)
[2016-09-15] MEDS: Acetaminophen 500 MG Tab PO SCH ×2 (13:49→21:02)
[2016-09-15] MEDS: Sodium Chloride 0.9% 10 ML Syringe FLUSH PRN (21:05)
[2016-09-15] MEDS: Levofloxacin/Dextrose 5%-Water 500 MG in Premix Bag 1 BAG IV SCH (21:40)
[2016-09-16] MEDS: Levothyroxine 75 MCG Tab GTUBE SCH (07:32)
[2016-09-16] MEDS: Carvedilol 25 MG Tab GTUBE SCH ×2 (07:33→17:47)
--- NOTE | 2016-09-16 08:47 | CR ---
INDICATION: Elevated white blood count. CHEST: An AP upright portable view of the chest, 09/14/2016, was compared with 04/17/2016 and 01/28/2014, revealing probable ASHD with mild cardiomegaly. A definite active infiltrate or effusion was not identified. No free air is noted under the hemidiaphragm leaves. Previous areas of pneumonia have resolved. IMPRESSION: 1. No acute process. 2. ASHD. MTDD
--- NOTE | 2016-09-16 08:49 | CR ---
INDICATION: No BM for 1 week. ABDOMEN: Supine and upright views of the abdomen were obtained with four images , 09/14/2016. No comparison abdomen x-rays were available. CT of the abdomen from 07/28/2014 was present for comparison, however. Tilt of the spine to the right is again noted with hypertrophic degenerative changes off vertebral bodies of moderate degree. A mass in the pelvis most likely represents distended urinary bladder. A moderately large amount of stool is suggested in the colon, with an appearance suggesting either a long-term obstructive process or constipation. Findings should be correlated clinically. No other organomegaly or mass lesions were identified. No nonvascular pathologic calcifications were seen. IMPRESSION: Generalized prominence of the colon with prominent amount of stool present, etiology indeterminate. It could be on the basis of a partial or early mechanically obstructive process, constipation, etcetera, and should be correlated clinically. No definite free air was seen. MTDD
[2016-09-16] MEDS: Aspirin 325 MG Tab GTUBE SCH (09:03)
[2016-09-16] MEDS: Gabapentin 600 MG Tab GTUBE SCH ×3 (09:04→20:04)
[2016-09-16] MEDS: Tamsulosin 0.4 MG Cap.ER PO SCH (09:04)
[2016-09-16] MEDS: Lisinopril 10 MG Tab GTUBE SCH (09:05)
[2016-09-16] MEDS: Multivitamin Tab PO SCH (09:05)
[2016-09-16] MEDS: Carboxymethylcellulose Sodium 0.5% Ophth Soln 15 ML Bottle EYEBOTH SCH (09:05)
[2016-09-16] MEDS: Acetaminophen 500 MG Tab PO SCH ×3 (09:08→20:06)
--- NOTE | 2016-09-16 15:02 | PN ---
DATE SEEN: 09/16/2016 SUBJECTIVE: Mr. Martinez is an 81-year-old male admitted with acute urinary retention and placement of suprapubic catheter. He has a feeding tube in place due to issues of muscular dystrophy. Concomitants include diabetes, hypertension. Intake orally has been limited. On IV antibiotics. LABORATORY STUDIES: White count 16,000, hemoglobin 12.1, electrolytes satisfactory. GFR greater than 60. Microbiology, surprisingly urine no growth after one day. EXAM: Gastrostomy tube in good place. ABDOMEN: Benign. Suprapubic in good condition flowing freely. ASSESSMENT: Acute urinary retention. PLAN: Continue suprapubic catheter, IV fluids in place, complementary well being. We will await culture report. Vital signs were documented. /[id number] MIRI/GIGI
[2016-09-16] MEDS: Levofloxacin/Dextrose 5%-Water 500 MG in Premix Bag 1 BAG IV SCH (22:24)
[2016-09-16] MEDS: Sodium Chloride 0.9% 10 ML Syringe FLUSH PRN (22:24)
[2016-09-16] MEDS: Sodium Chloride 0.9% 250 ML IV SCH (22:33)
[2016-09-17 08:06] VITALS: BP 152/82
[2016-09-17] MEDS: Gabapentin 600 MG Tab GTUBE SCH (08:32)
[2016-09-17] MEDS: Tamsulosin 0.4 MG Cap.ER PO SCH (08:32)
[2016-09-17] MEDS: Multivitamin Tab PO SCH (08:33)
[2016-09-17] MEDS: Carvedilol 25 MG Tab GTUBE SCH (08:33)
[2016-09-17] MEDS: Lisinopril 10 MG Tab GTUBE SCH (08:33)
[2016-09-17] MEDS: Levothyroxine 75 MCG Tab GTUBE SCH (08:33)
[2016-09-17] MEDS: Acetaminophen 500 MG Tab PO SCH (08:34)
[2016-09-17] MEDS: Carboxymethylcellulose Sodium 0.5% Ophth Soln 15 ML Bottle EYEBOTH SCH (08:34)
[2016-09-17] MEDS: Aspirin 325 MG Tab GTUBE SCH (08:35)
--- NOTE | 2016-09-18 03:25 | DISCH ---
DISCHARGE DATE: 09/17/2016 DISCHARGE DIAGNOSIS: Acute urinary retention, secondary to benign prostatic hypertrophy. HISTORY: Teodoro Martinez is an 81-year-old male who was admitted to [place] through the ER. Presented because of a pelvic pain, inability to void, Sunshine catheter attempted but unsuccessful, a suprapubic placed by Dr. Esdras Cottrell. Please see admitting history and physical. LABORATORY STUDIES: Though urine looked markedly abnormal, catheter specimen along blood cultures returned negative. No indications for antibiotics upon discharge. CBC revealed elevated white count of 2500, improved to 1600; hemoglobin stable at 15 and 12.1 with hydration. Renal function was stable, without other complicating issue. Chest x-ray revealed no acute process, the patient was stable. Suprapubic catheter was placed, care was provided, and instructions were given to his and family, ready for discharge. MEDICATIONS: Please see med recon list. FOLLOWUP: Have a followup appointment with Dr. Terrazas in 1-2 weeks' duration. /[id number] MIRI/GIGI
== END 2016-09-17 11:45 | disposition home or self-care (01) | DRG 726 ==
LOC: FB.ED 16:23 → FB.MS 18:31
PROVIDERS: ADMIT Family Medicine; ATTEND Family Medicine
DX: N40.1 Benign prostatic hyperplasia with lower urinary tract symptoms (principal); G71.0 Muscular dystrophy; J69.0 Pneumonitis due to inhalation of food and vomit; N39.0 Urinary tract infection, site not specified; R33.8 Other retention of urine; E11.9 Type 2 diabetes mellitus without complications; I10 Essential (primary) hypertension; F32.9 Major depressive disorder, single episode, unspecified; E03.9 Hypothyroidism, unspecified; K59.01 Slow transit constipation; R13.10 Dysphagia, unspecified
CPT/HCPCS: 36415; 51702; 51798; 71010; 74020; 80048; 83605; 83880; 85025; 85610; 87040 ×2; 99285; C2627; 80053; 81001; 84443; 87086; 99284; A9270-GY; J1956; J7050

== ENCOUNTER 2016-09-27 14:39 | Inpatient (IN) | payer MEDICARE, OTHER ==
[2016-09-27] MEDS ORDERED: Levofloxacin 250 MG Tab PO STA (16:31)
--- NOTE | 2016-09-27 16:34 | EDM.PDOC ---
ED HPI GENERAL MEDICAL PROBLEM - General Chief Complaint: General Stated Complaint: FALL Time Seen by Provider: 09/27/16 15:10 Source of Information: Reports: Patient, Family History Limitations: Reports: Physical Impairment - History of Present Illness INITIAL COMMENTS - FREE TEXT/NARRATIVE: 81 years old w m came with his because of frequent falls. Pt was seen recenly here for urinary retention when a suprapubic Sunshine cath was placed. Pt was admitted for 4 days. Onset: Unknown/Unsure Onset Date: 09/27/16 Onset Time: 06:00 Duration: Intermittent Location: Reports: Head, Face, Chest, Generalized Quality: Reports: Ache Severity: Mild Improves with: Reports: None Worsens with: Reports: None - Related Data Allergies Allergy/AdvReac Type Severity Reaction Status Date / Time amlodipine besylate Allergy Edema Verified 09/27/16 15:14 [From [facility]] Home Meds: Home Meds Aspirin 325 mg PO DAILY 01/28/14 [History] Carvedilol 50 mg PO BID 01/29/14 [History] Levothyroxine Sodium [Synthroid] 75 mcg PO DAILY@0600 01/29/14 [History] Multivitamin [Daily Multiple Vitamin] 1 tab PO DAILY 01/29/14 [History] guaiFENesin [Mucinex] 600 mg PO BID 01/29/14 [History] Amitriptyline [Elavil] 50 mg PO BEDTIME 11/06/15 [History] Carboxymethylcellulose Sodium [Refresh Tears] 1 drop EYEBOTH DAILY 11/06/15 [ History] Cyclobenzaprine [Flexeril] 5 mg PO BID 11/06/15 [History] Lisinopril 30 mg PO DAILY 11/06/15 [History] Gabapentin [Neurontin] 1,200 mg PO DAILY@14 09/14/16 [History] Gabapentin [Neurontin] 600 mg GTUBE BID 09/14/16 [History] Acetaminophen [Tylenol Arthritis Pain] 650 mg PO TID@,,09/27/16 [History] Gluc Mcleod Dipo Ch/Jeremy Mcleod/C/Nik [Glucosamine Chondroitin Caplet] 1 tab PO BID [History] Potassium Chloride 20 meq PO TID 09/27/16 [History] Tamsulosin [Flomax] 0.8 mg PO DAILY 09/27/16 [History] metFORMIN [Glucophage] 850 mg GTUBE 199909/27/16 [History] Past Medical History HEENT History: Reports: Cataract, Impaired Vision Cardiovascular History: Reports: Hypertension Respiratory History: Reports: None Gastrointestinal History: Reports: None Genitourinary History: Reports: BPH, Retention, Urinary Other Genitourinary History: supra pubic cath put in today 09/14/16 Musculoskeletal History: Reports: None Neurological History: Reports: None Psychiatric History: Reports: None Endocrine/Metabolic History: Reports: Diabetes, Type II, Hypothyroidism Hematologic History: Reports: None Immunologic History: Reports: None Oncologic (Cancer) History: Reports: None Dermatologic History: Reports: None - Infectious Disease History Infectious Disease History: Reports: Chicken Pox, Measles, Mumps, Shingles - Past Surgical History Head Surgeries/Procedures: Reports: None HEENT Surgical History: Reports: Cataract Surgery, Naso-Sinus Surgery GI Surgical History: Reports: Colonoscopy, EGD, Other (See Below) Neurological Surgical History: Reports: Laminectomy, Other (See Below) Musculoskeletal Surgical History: Reports: Other (See Below) Social & Family History - Family History Family Medical History: Noncontributory - Tobacco Use Smoking Status *Q: Never Smoker Second Hand Smoke Exposure: No - Caffeine Use Caffeine Use: Reports: None - Alcohol Use Days Per Week of Alcohol Use: 1 Number of Drinks Per Day: 1 Total Drinks Per Week: 1 - Recreational Drug Use Recreational Drug Use: No Drug Use in Last 12 Months: No - Living Situation & Occupation Occupation: Retired ED ROS GENERAL - Review of Systems Review Of Systems: See Below Constitutional: Reports: Weakness, Decreased Appetite HEENT: Reports: No Symptoms Respiratory: Reports: Hemoptysis Cardiovascular: Reports: No Symptoms Endocrine: Reports: No Symptoms GI/Abdominal: Reports: No Symptoms : Reports: Urinary Retention Musculoskeletal: Reports: Other (Muscular d) Skin: Reports: No Symptoms Neurological: Reports: Difficulty Walking, Change in Speech, Other (muscular dystrophy) Psychiatric: Reports: No Symptoms Hematologic/Lymphatic: Reports: No Symptoms Immunologic: Reports: No Symptoms ED EXAM, GENERAL - Physical Exam Exam: See Below Exam Limited By: Physical Impairment General Appearance: Alert, WD/WN, Mild Distress Eye Exam: Bilateral Eye: Normal Inspection Ears: Normal External Exam Ear Exam: Bilateral Ear: Auricle Normal Nose: Normal Inspection, Normal Mucosa Throat/Mouth: Normal Inspection, Normal Lips Head: Atraumatic, Normocephalic Neck: Normal Inspection Respiratory/Chest: No Respiratory Distress, Lungs Clear Cardiovascular: Normal Peripheral Pulses, Regular Rate, Rhythm GI/Abdominal: Normal Bowel Sounds, Other (suprapubic cath) (Male) Exam: Deferred Rectal (Males) Exam: Deferred Back Exam: Normal Inspection, Full Range of Motion Extremities: Normal Inspection Neurological: Alert, Oriented, CN II-XII Intact Psychiatric: Normal Affect, Normal Mood Skin Exam: Warm, Dry, Intact, Normal Color, No Rash Lymphatic: No Adenopathy Course - Vital Signs Text/Narrative:: 81 years old w m came with his because of frequent falls. Pt was seen recenly here for urinary retention when a suprapubic Sunshine cath was placed. Pt was admitted for 4 days. PE: gen weakness,Muscular dystrophy, frequent falls Imaging: CXR LLL pneumonia with patchy infiltrate Labs: WBC 14.4 HGB 11.9 Impression: Muscular dystrophy, ELVA, frequent falls, LLL pneumonia Tx: Levoquin Plan: Admit to de dios Last Recorded V/S: Last Vital Signs Temp 37.2 C 09/27/16 15:10 Pulse 69 09/27/16 15:10 Resp 18 09/27/16 15:10 BP 193/70 H 09/27/16 15:10 Pulse Ox 100 09/27/16 15:10 - Orders/Labs/Meds Orders: Active Orders 24 hr Category Date Time Status Oxygen Therapy [RC] PRN Care 09/27/16 17:42 Active VTE/DVT Education [RC] Per Unit Routine Care 09/27/16 17:42 Active Vital Signs [RC] Q4H Care 09/27/16 17:42 Active CXR [Chest 2V] [CR] Stat Exams 09/27/16 17:18 Taken Cervical Spine wo Cont [CT] Stat Exams 09/27/16 14:49 Taken Head wo Cont [CT] Stat Exams 09/27/16 14:49 Ordered CULTURE BLOOD [BC] Urgent Lab 09/27/16 18:38 Ordered CULTURE BLOOD [BC] Urgent Lab 09/27/16 18:38 Ordered LACTIC ACID [CHEM] Stat Lab 09/27/16 18:37 Ordered Levofloxacin/Dextrose 5%-Water [Levaquin in D5W 500 MG/ Med 09/27/16 18:45 Ordered 100 ML] 500 mg Premix Bag 1 bag IV Q24H Blood Culture x2 Reflex Set [OM.PC] Urgent Oth 09/27/16 18:37 Ordered Resuscitation Status Routine Resus Stat 09/27/16 17:42 Ordered Labs: Laboratory Tests 09/27/16 09/27/16 09/27/16 Range/Units 15:08 16:00 16:00 WBC 14.0 H (4.5-12.0) X10-3/uL RBC 3.89 L (4.30-5.75) x10(6)uL Hgb 11.9 (11.5-15.5) g/dL Hct 35.7 (30.0-51.3) % MCV 91.6 (80-96) fL MCH 30.5 (27.7-33.6) pg MCHC 33.3 (32.2-35.4) g/dL RDW 13.2 (11.5-15.5) % Plt Count 190 (125-369) X10(3)uL MPV 7.6 (7.4-10.4) fL Neut % (Auto) 78.4 (46-82) % Lymph % (Auto) 14.4 (13-37) % Weber % (Auto) 4.7 (4-12) % Eos % (Auto) 2 (1.0-5.0) % Baso % (Auto) 0 (0-2) % Neut # (Auto) 10.9 H (1.6-8.3) # Lymph # (Auto) 2.0 (0.6-5.0) # Weber # (Auto) 0.7 (0.0-1.3) # Eos # (Auto) 0.3 (0.0-0.8) # Baso # (Auto) 0.0 (0.0-0.2) # PT 11.0 (8.7-11.1) INR 1.09 (0.89-1.13) Sodium (135-145) mmol/L Potassium (3.5-5.3) mmol/L Chloride (100-110) mmol/L Carbon Dioxide (23-29) mmol/L BUN (8-23) mg/dL Creatinine (0.6-1.3) mg/dL Est Cr Clr Drug Dosing Estimated GFR (MDRD) (>60) BUN/Creatinine Ratio (9-20) Glucose (80-116) mg/dL Calcium (8.6-10.2) mg/dL Urine Color Yellow (YELLOW) Urine Appearance Slightly cloudy (CLEAR) Urine pH 8.0 H (5.0-6.5) Ur Specific [place] 1.010 (1.010-1.025) Urine Protein 30 H (NEGATIVE) mg/dL Urine Glucose (UA) Normal (NEGATIVE) mg/dL Urine Ketones Negative (NEGATIVE) mg/dL Urine Occult Blood Large H (NEGATIVE) Urine Nitrite Negative (NEGATIVE) Urine Bilirubin Negative (NEGATIVE) Urine Urobilinogen 1 H (NEGATIVE) mg/dL Ur Leukocyte Esterase Large H (NEGATIVE) Urine RBC 30-40 H (0) Urine WBC >100 H (0) Ur Squamous Epith Cells Few H (NS,R,O) Urine Bacteria Moderate H (NS) 09/27/16 Range/Units 16:00 WBC (4.5-12.0) X10-3/uL RBC (4.30-5.75) x10(6)uL Hgb (11.5-15.5) g/dL Hct (30.0-51.3) % MCV (80-96) fL MCH (27.7-33.6) pg MCHC (32.2-35.4) g/dL RDW (11.5-15.5) % Plt Count (125-369) X10(3)uL MPV (7.4-10.4) fL Neut % (Auto) (46-82) % Lymph % (Auto) (13-37) % Weber % (Auto) (4-12) % Eos % (Auto) (1.0-5.0) % Baso % (Auto) (0-2) % Neut # (Auto) (1.6-8.3) # Lymph # (Auto) (0.6-5.0) # Weber # (Auto) (0.0-1.3) # Eos # (Auto) (0.0-0.8) # Baso # (Auto) (0.0-0.2) # PT (8.7-11.1) INR (0.89-1.13) Sodium 139 (135-145) mmol/L Potassium 3.7 (3.5-5.3) mmol/L Chloride 100 (100-110) mmol/L Carbon Dioxide 31 H (23-29) mmol/L BUN 15 D (8-23) mg/dL Creatinine 0.4 L (0.6-1.3) mg/dL Est Cr Clr Drug Dosing TNP Estimated GFR (MDRD) > 60 (>60) BUN/Creatinine Ratio 37.5 H (9-20) Glucose 146 H (80-116) mg/dL Calcium 9.1 (8.6-10.2) mg/dL Urine Color (YELLOW) Urine Appearance (CLEAR) Urine pH (5.0-6.5) Ur Specific [place] (1.010-1.025) Urine Protein (NEGATIVE) mg/dL Urine Glucose (UA) (NEGATIVE) mg/dL Urine Ketones (NEGATIVE) mg/dL Urine Occult Blood (NEGATIVE) Urine Nitrite (NEGATIVE) Urine Bilirubin (NEGATIVE) Urine Urobilinogen (NEGATIVE) mg/dL Ur Leukocyte Esterase (NEGATIVE) Urine RBC (0) Urine WBC (0) Ur Squamous Epith Cells (NS,R,O) Urine Bacteria (NS) Meds: Medications Discontinued Medications Generic Name Dose Route Start Last Admin Trade Name Freq PRN Reason Stop Dose Admin Levofloxacin 500 mg 09/27/16 16:31 09/27/16 16:59 Levaquin PO 09/27/16 16:32 500 mg ONETIME STA Administration Departure - Departure Time of Disposition: 17:30 Disposition: Refer to Observation Condition: fair Clinical Impression: UTI (urinary tract infection), Falls frequently, Muscular dystrophy - Discharge Information Referrals: Renato Terrazas MD [Primary Care Provider] - Forms: ED Department Discharge - My Orders Last 24 Hours: My Active Orders 09/27/16 14:49 Cervical Spine wo Cont [CT] Stat Head wo Cont [CT] Stat 09/27/16 17:18 CXR [Chest 2V] [CR] Stat 09/27/16 17:42 Oxygen Therapy [RC] PRN VTE/DVT Education [RC] Per Unit Routine Vital Signs [RC] Q4H Resuscitation Status Routine 09/27/16 18:37 LACTIC ACID [CHEM] Stat Blood Culture x2 Reflex Set [OM.PC] Urgent 09/27/16 18:38 CULTURE BLOOD [BC] Urgent CULTURE BLOOD [BC] Urgent 09/27/16 18:45 Levofloxacin/Dextrose 5%-Water [Levaquin in D5W 500 MG/100 ML] 500 mg Premix Bag 1 bag IV Q24H - Assessment/Plan Last 24 Hours: My Active Orders 09/27/16 14:49 Cervical Spine wo Cont [CT] Stat Head wo Cont [CT] Stat 09/27/16 17:18 CXR [Chest 2V] [CR] Stat 09/27/16 17:42 Oxygen Therapy [RC] PRN VTE/DVT Education [RC] Per Unit Routine Vital Signs [RC] Q4H Resuscitation Status Routine 09/27/16 18:37 LACTIC ACID [CHEM] Stat Blood Culture x2 Reflex Set [OM.PC] Urgent 09/27/16 18:38 CULTURE BLOOD [BC] Urgent CULTURE BLOOD [BC] Urgent 09/27/16 18:45 Levofloxacin/Dextrose 5%-Water [Levaquin in D5W 500 MG/100 ML] 500 mg Premix Bag 1 bag IV Q24H
[2016-09-27] MEDS ORDERED: Levofloxacin/Dextrose 5%-Water 500 MG in Premix Bag 1 BAG IV SCH (18:45)
--- NOTE | 2016-09-27 19:15 | PCM.HP ---
H&P History of Present Illness - General Date of Service: 09/27/16 Admit Problem/Dx: Admission Diagnosis/Problem Admission Diagnosis/Problem Falls Source of Information: Patient History Limitations: Reports: No Limitations - History of Present Illness Initial Comments - Free Text/Narative: This is an 81-year-old male patient who has a muscular dystrophy has had fatigue , cough, hemoptysis. His brought him in because he fell and he is very weak. He is in a wheelchair but she is able to transfer him. He was in the hospital 2 weeks ago for 4 days for UTI. Has indwelling catheter. He cannot feel his bladder at this time. He feels chills but no fevers. - Related Data Allergies/Adverse Reactions: Allergies Allergy/AdvReac Type Severity Reaction Status Date / Time amlodipine besylate Allergy Edema Verified 09/27/16 15:14 [From [facility]] Home Medications: Home Meds Aspirin 325 mg PO DAILY 01/28/14 [History] Carvedilol 50 mg PO BID 01/29/14 [History] Levothyroxine Sodium [Synthroid] 75 mcg PO DAILY@0600 01/29/14 [History] Multivitamin [Daily Multiple Vitamin] 1 tab PO DAILY 01/29/14 [History] guaiFENesin [Mucinex] 600 mg PO BID 01/29/14 [History] Amitriptyline [Elavil] 50 mg PO BEDTIME 11/06/15 [History] Carboxymethylcellulose Sodium [Refresh Tears] 1 drop EYEBOTH DAILY 11/06/15 [ History] Cyclobenzaprine [Flexeril] 5 mg PO BID 11/06/15 [History] Lisinopril 30 mg PO DAILY 11/06/15 [History] Gabapentin [Neurontin] 1,200 mg PO DAILY@14 09/14/16 [History] Gabapentin [Neurontin] 600 mg GTUBE BID 09/14/16 [History] Acetaminophen [Tylenol Arthritis Pain] 650 mg PO TID@,,09/27/16 [History] Gluc Mcleod Dipo Ch/Jeremy Mcleod/C/Nik [Glucosamine Chondroitin Caplet] 1 tab PO BID [History] Potassium Chloride 20 meq PO TID 09/27/16 [History] Tamsulosin [Flomax] 0.8 mg PO DAILY 09/27/16 [History] metFORMIN [Glucophage] 850 mg GTUBE 199909/27/16 [History] Past Medical History HEENT History: Reports: Cataract, Impaired Vision Cardiovascular History: Reports: Hypertension Respiratory History: Reports: None Gastrointestinal History: Reports: None Genitourinary History: Reports: BPH, Retention, Urinary Other Genitourinary History: supra pubic cath put in today 09/14/16 Musculoskeletal History: Reports: None Neurological History: Reports: None Psychiatric History: Reports: None Endocrine/Metabolic History: Reports: Diabetes, Type II, Hypothyroidism Hematologic History: Reports: None Immunologic History: Reports: None Oncologic (Cancer) History: Reports: None Dermatologic History: Reports: None - Infectious Disease History Infectious Disease History: Reports: Chicken Pox, Measles, Mumps, Shingles - Past Surgical History Head Surgeries/Procedures: Reports: None HEENT Surgical History: Reports: Cataract Surgery, Naso-Sinus Surgery GI Surgical History: Reports: Colonoscopy, EGD, Other (See Below) Neurological Surgical History: Reports: Laminectomy, Other (See Below) Musculoskeletal Surgical History: Reports: Other (See Below) Social & Family History - Family History Family Medical History: Noncontributory - Tobacco Use Smoking Status *Q: Never Smoker Second Hand Smoke Exposure: No - Caffeine Use Caffeine Use: Reports: None - Alcohol Use Days Per Week of Alcohol Use: 1 Number of Drinks Per Day: 1 Total Drinks Per Week: 1 - Recreational Drug Use Recreational Drug Use: No Drug Use in Last 12 Months: No - Living Situation & Occupation Occupation: Retired H&P Review of Systems - Review of Systems: Review Of Systems: See Below General: Reports: Chills, Weakness. Denies: Fever HEENT: Reports: No Symptoms Pulmonary: Reports: Cough, Sputum, Hemoptysis. Denies: Shortness of Breath Cardiovascular: Reports: No Symptoms Gastrointestinal: Reports: No Symptoms Genitourinary: Reports: No Symptoms Musculoskeletal: Reports: Other (Chronic weakness due to muscular dystrophy) Skin: Reports: No Symptoms Psychiatric: Reports: No Symptoms Neurological: Reports: No Symptoms Hematologic/Lymphatic: Reports: No Symptoms Immunologic: Reports: No Symptoms Exam - Exam Exam: See Below - Vital Signs Vital Signs: Last Vital Signs Temp 98.9 F 09/27/16 15:10 Pulse 69 09/27/16 15:10 Resp 18 09/27/16 15:10 BP 193/70 H 09/27/16 15:10 Pulse Ox 100 09/27/16 15:10 Weight: 189 lb 1.6 oz - Exam General: Alert, Oriented, Cooperative HEENT: Mucosa Moist & Cleora, TMs Clear Neck: Supple, Trachea Midline Lungs: Clear to Auscultation, Normal Respiratory Effort. No: Crackles, Rales, Rhonchi, Rub Cardiovascular: Regular Rate, Regular Rhythm. No: Bradycardia, Tachycardia Abdomen: Normal Bowel Sounds, Soft. No: Organomegaly, Peritoneal Signs, Distention, Guarding Back Exam: Normal Inspection Extremities: Normal Inspection. No: Edema Skin: Warm, Dry, Intact Neuro Extensive - Mental Status: Alert, Oriented x3, Normal Mood/Affect, Normal Cognition (A) Neuro Extensive - Motor, Sensory, Reflexes: No: Normal Gait Psychiatric: Alert, Normal Mood (That her grandfather when the) - Patient Data Result Diagrams: 09/27/16 16:00 09/27/16 16:00 *Q Meaningful Use (ADM) - VTE *Q VTE Criteria *Q: - Stroke *Q Stroke Criteria *Q: - AMI *Q AMI Criteria *Q: - Problem List (1) Pneumonia SNOMED Code(s): 305055475 ICD Code: J18.9 - PNEUMONIA, UNSPECIFIED ORGANISM Status: Acute Current Visit: Yes (2) Bacteremia SNOMED Code(s): 7916883 ICD Code: R78.81 - BACTEREMIA Status: Acute Current Visit: Yes Problem List Initiated/Reviewed/Updated: Yes (That her grandfather when the baby for Vicodin to) Orders Last 24hrs: Active Orders 24 hr Category Date Time Status Accu Check [Blood Glucose Check, Bedside] [RC] BIDMEALS Care 09/27/16 19:09 Active Consistent Carbohydrate Diet [DIET] Diet 09/27/16 Breakfast Active CULTURE BLOOD [BC] Urgent Lab 09/27/16 18:50 Received CULTURE BLOOD [BC] Urgent Lab 09/27/16 18:55 Received CULTURE URINE [RM] Routine Lab 09/27/16 19:06 Uncollected LACTIC ACID [CHEM] Stat Lab 09/27/16 18:50 Received Acetaminophen [Tylenol Arthritis Pain] Med 09/27/16 20:00 Ordered 650 mg PO TID@08,14,20 Amitriptyline [Elavil] Med 09/27/16 21:00 Ordered 50 mg PO BEDTIME Aspirin Med 09/28/16 09:00 Ordered 325 mg PO DAILY Carboxymethylcellulose Sodium [Refresh Tears 0.5%] Med 09/28/16 09:00 Ordered DOSE ml EYEBOTH DAILY Carvedilol [Coreg] Med 09/27/16 21:00 Ordered 50 mg PO BID Cyclobenzaprine [Flexeril] Med 09/27/16 21:00 Ordered 5 mg PO BID Gabapentin [Neurontin] Med 09/28/16 14:00 Ordered 1,200 mg PO DAILY@14 Gabapentin [Neurontin] Med 09/27/16 21:00 Ordered 600 mg GTUBE BID Gluc Mcleod Dipo Ch/Jeremy Mcleod/C/Nik [Glucosamine Chondroitin Med 09/27/16 21:00 Ordered Caplet] 1 tab PO BID Levofloxacin/Dextrose 5%-Water [Levaquin in D5W 500 MG/ Med 09/27/16 18:45 Active 100 ML] 500 mg Premix Bag 1 bag IV Q24H Levothyroxine Med 09/28/16 06:00 Ordered 75 mcg PO DAILY@0600 Lisinopril [Prinivil] Med 09/28/16 09:00 Ordered 30 mg PO DAILY Multivitamins [Tab-A-Ashlee] Med 09/28/16 09:00 Ordered 1 tab PO DAILY Potassium Chloride [Potassium Chloride] Med 09/27/16 21:00 Ordered 20 meq PO TID Tamsulosin [Flomax] Med 09/28/16 09:00 Ordered 0.8 mg PO DAILY guaiFENesin [Mucinex] Med 09/27/16 21:00 Ordered 600 mg PO BID metFORMIN [Glucophage] Med 09/27/16 20:00 Ordered 850 mg GTUBE 2000 Blood Culture x2 Reflex Set [OM.PC] Urgent Oth 09/27/16 18:37 Ordered Medication Orders Acetaminophen (Tylenol Arthritis Pain) 650 mg PO TID@08,14,20 OWEN Amitriptyline HCl (Elavil) 50 mg PO BEDTIME OWEN Artificial Tears (Refresh Tears 0.5%) ml EYEBOTH DAILY OWEN Aspirin (Aspirin) 325 mg PO DAILY OWEN Carvedilol (Coreg) 50 mg PO BID OWEN Cyclobenzaprine HCl (Flexeril) 5 mg PO BID OWEN Gabapentin (Neurontin) 600 mg GTUBE BID OWEN Gabapentin (Neurontin) 1,200 mg PO DAILY@14 OWEN Guaifenesin (Mucinex) 600 mg PO BID OWEN Levofloxacin/Dextrose 500 mg/ (Premix) 100 mls @ 100 mls/hr IV Q24H OWEN Levothyroxine Sodium (Levothyroxine) 75 mcg PO DAILY@0600 OWEN Lisinopril (Prinivil) 30 mg PO DAILY OWEN Metformin HCl (Glucophage) 850 mg GTUBE 2000 [facility] Multivitamins/Minerals/Vitamin C (Tab-A-Ashlee) 1 tab PO DAILY OWEN Non-Formulary Medication (Gluc Mcleod Dipo Ch/Jeremy Mcleod/C/Nik [Glucosamine Chondroitin Caplet]) 1 tab PO BID OWEN Non-Formulary Medication (Potassium Chloride [Potassium Chloride]) 20 meq PO TID OWEN Tamsulosin HCl (Flomax) 0.8 mg PO DAILY [facility] Assessment/Plan Comment:: 1. Admit the patient. Inpatient. He wants to be a DO NOT RESUSCITATE/DO NOT INTUBATE. 2. Levaquin 500 mg IV daily. 3. Carbohydrate diet and check Accu-Cheks twice a day. 4. Labs in the future but not tomorrow.
[2016-09-27] MEDS ORDERED: Acetaminophen 650 MG Tab.ER PO SCH (20:00)
[2016-09-27] MEDS ORDERED: [UNRECOGNIZED DRUG - OTHER] PO SCH (21:00)
[2016-09-27] MEDS ORDERED: guaiFENesin 600 MG Tab.ER PO SCH (21:00)
[2016-09-27] MEDS: Cyclobenzaprine 10 MG Tab GTUBE SCH (22:01)
[2016-09-27] MEDS: Carvedilol 25 MG Tab GTUBE SCH (22:01)
[2016-09-27] MEDS: Potassium Chloride 20 MEQ Packet GTUBE SCH (22:01)
[2016-09-27] MEDS: Gabapentin 600 MG Tab GTUBE SCH (22:16)
[2016-09-28] MEDS: Levothyroxine 75 MCG Tab GTUBE SCH (06:01)
--- NOTE | 2016-09-28 08:46 | CT ---
INDICATION: Falls. CT HEAD WITHOUT CONTRAST: Serial contiguous 2.5 and 5-mm sections were obtained through the brain without contrast, 09/27/2016. No comparison study was available. Total Exam DLP = 949.36 mGy-cm. Retention cysts are noted in the maxillary antra - one each. Partial opacification - thickening of the linings of multiple left ethmoidal air cells is noted. The mastoid air cells appear to be well aerated. No definite cranial abnormality was seen - no cranial fracture site is suspected. Minimal calcification is suggested in the left vertebral artery. Definite calcifications are noted in the internal carotid arteries bilaterally. There is no shift of midline structures. Ventricles are slightly asymmetrical and slightly prominent, at least in part due to the patients age. The variation in size of the ventricles - right larger - could be on the basis of some loss of brain tissue on the right relatively with a very minimal degree of low-density abnormality in the white matter, raising question of minimal microvascular disease mostly on the right. No bleeding site or hematoma was identified. Cortical sulci are slightly prominent with more prominent sulci in the frontal area and temporal lobe areas - somewhat asymmetrical compared with the parietal area. No other intracranial abnormality was seen. IMPRESSION: 1. No definite acute intracranial abnormality. 2. 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 3. Question minimal microvascular disease especially on the right. 4. Cerebrovascular disease. 5. Possible ethmoidal sinusitis on the left, minimal retention cysts maxillary antra. Cannot exclude a nasal polyp on the right posteriorly, just caudal to the level of the sphenoidal air cells. Report was called to Dr. Maldonado at 1619 hours, 09/27/2016. [facility]
--- NOTE | 2016-09-28 08:47 | PCM.PN ---
- General Info Date of Service: 09/28/16 Admission Dx/Problem (Free Text): Patient states he feels good. He has a little cough with hemoptysis. He denies shortness of breath. Still feels weak. No fevers, chills, chest pain. - Patient Data Vitals - most recent: Last Vital Signs Temp 97.4 F 09/28/16 07:00 Pulse 72 09/28/16 07:00 Resp 18 09/28/16 07:00 BP 142/72 H 09/28/16 07:00 Pulse Ox 96 09/28/16 07:00 Weight - most recent: 189 lb 1.6 oz I&O - last 24 hours: Intake & Output 09/27/16 09/28/16 09/28/16 22:59 06:59 14:59 Intake Total 774 200 Output Total 1050 Balance -276 200 Lab Results last 24 hrs: Laboratory Results - last 24 hr 09/27/16 09/27/16 09/27/16 Range/Units 18:50 21:25 22:15 POC Glucose 247 H D (80-116) mg/dL Lactic Acid 1.1 (0.5-2.2) mmol/L Urine Color Yellow (YELLOW) Urine Appearance Clear (CLEAR) Urine pH 8.0 H (5.0-6.5) Ur Specific [place] 1.010 (1.010-1.025) Urine Protein Negative (NEGATIVE) mg/dL Urine Glucose (UA) >1000 H (NEGATIVE) mg/dL Urine Ketones Negative (NEGATIVE) mg/dL Urine Occult Blood Negative (NEGATIVE) Urine Nitrite Negative (NEGATIVE) Urine Bilirubin Negative (NEGATIVE) Urine Urobilinogen Normal (NEGATIVE) mg/dL Ur Leukocyte Esterase Moderate H (NEGATIVE) Urine RBC 0-5 (0) Urine WBC 20-30 H (0) Ur Squamous Epith Cells Rare (NS,R,O) Urine Bacteria Moderate H (NS) 09/28/16 Range/Units 06:07 POC Glucose 135 H D (80-116) mg/dL Lactic Acid (0.5-2.2) mmol/L Urine Color (YELLOW) Urine Appearance (CLEAR) Urine pH (5.0-6.5) Ur Specific [place] (1.010-1.025) Urine Protein (NEGATIVE) mg/dL Urine Glucose (UA) (NEGATIVE) mg/dL Urine Ketones (NEGATIVE) mg/dL Urine Occult Blood (NEGATIVE) Urine Nitrite (NEGATIVE) Urine Bilirubin (NEGATIVE) Urine Urobilinogen (NEGATIVE) mg/dL Ur Leukocyte Esterase (NEGATIVE) Urine RBC (0) Urine WBC (0) Ur Squamous Epith Cells (NS,R,O) Urine Bacteria (NS) Med Orders - Current: Current Medications Amitriptyline HCl (Elavil) 50 mg GTUBE BEDTIME [facility] Last Admin: 09/27/16 22:16 Dose: 50 mg Artificial Tears (Refresh Tears 0.5%) 0 ml EYEBOTH DAILY [facility] Aspirin (Aspirin) 325 mg GTUBE DAILY [facility] Carvedilol (Coreg) 50 mg GTUBE BID [facility] Last Admin: 09/27/16 22:01 Dose: 50 mg Cyclobenzaprine HCl (Flexeril) 5 mg GTUBE BID [facility] Last Admin: 09/27/16 22:01 Dose: 5 mg Gabapentin (Neurontin) 600 mg GTUBE BID [facility] Last Admin: 09/27/16 22:16 Dose: 600 mg Gabapentin (Neurontin) 1,200 mg GTUBE DAILY@14 [facility] Glucosamine/Chondroitin (Glucosamine-Chondroitin 500-400 Capsule) 1 cap .XX BID [facility] Levofloxacin/Dextrose 500 mg/ (Premix) 100 mls @ 100 mls/hr IV Q24H [facility] Levothyroxine Sodium (Levothyroxine) 75 mcg GTUBE DAILY@0600 [facility] Last Admin: 09/28/16 06:01 Dose: 75 mcg Lisinopril (Prinivil) 30 mg GTUBE DAILY [facility] Metformin HCl (Glucophage) 850 mg GTUBE 2000 [facility] Last Admin: 09/27/16 22:01 Dose: 850 mg Multivitamins/Minerals/Vitamin C (Tab-A-Ashlee) 1 tab PO DAILY [facility] Potassium Chloride (Klor-Con) 20 meq GTUBE TID [facility] Last Admin: 09/27/16 22:01 Dose: 20 meq Tamsulosin HCl (Flomax) 0.8 mg .XX DAILY [facility] Discontinued Medications Acetaminophen (Tylenol Arthritis Pain) 650 mg PO TID@08,14,20 [facility] Guaifenesin (Mucinex) 600 mg PO BID [facility] Last Admin: 09/28/16 02:34 Dose: Not Given Levofloxacin (Levaquin) 500 mg PO ONETIME STA Stop: 09/27/16 16:32 Last Admin: 09/27/16 16:59 Dose: 500 mg Non-Formulary Medication (Gluc Mcleod Dipo Ch/Jeremy Mcleod/C/Nik [Glucosamine Chondroitin Caplet]) 1 tab PO BID [facility] Last Admin: 09/28/16 02:34 Dose: Not Given - Exam General: alert, oriented, cooperative Lungs: Normal respiratory effort, Crackles (Bases) Cardiovascular: Regular Rate, Regular Rhythm, No Murmurs Extremities: no edema - Problem List & Annotations (1) Pneumonia SNOMED Code(s): 573826074 Code(s): J18.9 - PNEUMONIA, UNSPECIFIED ORGANISM Status: Acute Current Visit: Yes (2) Bacteriuria SNOMED Code(s): 35622311 Code(s): R82.71 - BACTERIURIA Status: Acute Current Visit: Yes (3) Palliative care status SNOMED Code(s): 606027975 Code(s): Z51.5 - ENCOUNTER FOR PALLIATIVE CARE Status: Acute Current Visit: Yes - Problem List Review Problem List Initiated/Reviewed/Updated: Yes - My Orders Last 24 Hours: My Active Orders 09/27/16 19:09 Accu Check [Blood Glucose Check, Bedside] [RC] BIDMEALS 09/27/16 20:00 metFORMIN [Glucophage] 850 mg GTUBE 199909/27/16 21:00 Amitriptyline [Elavil] 50 mg GTUBE BEDTIME Carvedilol [Coreg] 50 mg GTUBE BID Cyclobenzaprine [Flexeril] 5 mg GTUBE BID Gabapentin [Neurontin] 600 mg GTUBE BID Potassium Chloride [Klor-Con] 20 meq GTUBE TID 09/27/16 21:25 CULTURE URINE [RM] Routine 09/28/16 06:00 Levothyroxine 75 mcg GTUBE DAILY@0600 09/28/16 08:44 Consult to Occupational Therapy [OT Evaluation and Treatment] [CONS] Routine 09/28/16 08:45 Consult to Physical Therapy [PT Evaluation and Treatment] [CONS] Routine 09/28/16 09:00 Aspirin 325 mg GTUBE DAILY Carboxymethylcellulose Sodium [Refresh Tears 0.5%] 0 ml EYEBOTH DAILY Chondroitin/Glucosamine [Glucosamine-Chondroitin 500-400 Capsule] 1 cap .XX BID Lisinopril [Prinivil] 30 mg GTUBE DAILY Multivitamins [Tab-A-Ashlee] 1 tab PO DAILY Tamsulosin [Flomax] 0.8 mg .XX DAILY 09/28/16 14:00 Gabapentin [Neurontin] 1,200 mg GTUBE DAILY@09/28/16 Breakfast Tube Feeding Adult Diet [DIET] - Plan Plan:: 1. PT/OT evaluation. 2. Continue IV antibiotics.
--- NOTE | 2016-09-28 08:58 | CT ---
INDICATION: Fall. CT CERVICAL SPINE: Spiral 2.5-mm axial sections were obtained through the cervical spine with sagittal and coronal reconstructions. Total Exam DLP = 490.29 mGy-cm. Anterior flowing hyperostotic changes are noted from C3 through T2, compatible with DISH. Degenerative disk disease is suggested at C2-3, C3-4, C4-5, C5-6, to a lesser extent at C6-7 and also at C7-T1. Narrowing of neural foramina is noted to varying degrees at all levels, but most severely at C3-4, C4-5, and C5-6, with C5-6 less prominent on the right than on the left. Some narrowing is also noted at C2-3 on the left. Sclerosis and hypertrophic change is noted at the uncinate joints at all levels. The odontoid appears to be intact without evidence of an acute fracture or dislocation identified. Bone density appeared to be normal. Prevertebral space appeared to be normal. IMPRESSION: 1. No definite acute fracture or dislocation, although it is difficult to entirely exclude chip fracture fragment at hypertrophic change anteriorly - right laterally at the C2-3 level. This finding should not be of critical or significant clinical importance. 2. DISH. 3. Diffuse degenerative disk disease and hypertrophic degenerative change with narrowing of neural foramina as noted above. Report was called to Dr. Maldonado at 1619 hours, 09/27/2016. [facility]
[2016-09-28] MEDS ORDERED: Aspirin 325 MG Tab PO SCH (09:00)
[2016-09-28] MEDS ORDERED: Chondroitin/Glucosamine Cap SCH (09:00)
--- NOTE | 2016-09-28 09:05 | CR ---
INDICATION: Hemoptysis CHEST: PA and lateral views of the chest were obtained 09/27/2016 and compared with 09/14/2016, revealing consolidating infiltration in the left lower lobe. No definite pleural effusion is seen. This appearance suggests a pneumonia. Findings are also compatible with a degree of COPD. DISH is suggested with flowing hyperostotic changes in the upper middle through lower middle thoracic spine. The heart appears slightly generous in size, but is emphasized by relatively poor inspiration. The aorta is somewhat calcified in the arch area and mildly tortuous. There is also a minimal dextroconvex scoliosis suggested in the thoracic spine. IMPRESSION: 1. Pneumonia consolidating, no pleuritis, left lower lobe. 2. Probable COPD. 3. Probable ASHD. 4. DISH, scoliosis. Report was called to Dr. Maldonado at approximately 1835 hours, 09/27/2016. [facility]
[2016-09-28] MEDS: Aspirin 325 MG Tab GTUBE SCH (09:16)
[2016-09-28] MEDS: Cyclobenzaprine 10 MG Tab GTUBE SCH ×2 (09:16→20:32)
[2016-09-28] MEDS: Carvedilol 25 MG Tab GTUBE SCH ×2 (09:16→20:26)
[2016-09-28] MEDS: Potassium Chloride 20 MEQ Packet GTUBE SCH ×3 (09:17→20:32)
[2016-09-28] MEDS: Gabapentin 600 MG Tab GTUBE SCH ×3 (09:17→20:32)
[2016-09-28] MEDS: Tamsulosin 0.4 MG Cap.ER SCH (09:17)
[2016-09-28] MEDS: Lisinopril 10 MG Tab GTUBE SCH (09:17)
[2016-09-28] MEDS: Carboxymethylcellulose Sodium 0.5% Ophth Soln 15 ML Bottle EYEBOTH SCH (09:34)
[2016-09-28] MEDS ORDERED: Sodium Chloride 0.9% 10 ML Syringe FLUSH PRN (13:01)
[2016-09-28] MEDS: Acetaminophen Soln 650 MG/20.3 ML UD Cup PO SCH ×2 (15:06→20:32)
[2016-09-28] MEDS ORDERED: Bisacodyl 10 MG Supp RECTAL PRN (17:19)
[2016-09-28] MEDS ORDERED: Sodium Chloride 0.9% 250 ML IV SCH (18:00)
[2016-09-28] MEDS ORDERED: Levofloxacin/Dextrose 5%-Water 500 MG in Premix Bag 1 BAG IV SCH (18:00)
[2016-09-29] MEDS: Levothyroxine 75 MCG Tab GTUBE SCH (06:05)
--- NOTE | 2016-09-29 08:29 | PCM.PN ---
- General Info Date of Service: 09/29/16 Admission Dx/Problem (Free Text): Patient states that his cough is improved. He denies shortness of breath, fevers, chills. He states he was having some nasal congestion but that was better last night. The nurses state he still is a two-person transfer or a Halina lift. - Patient Data Vitals - most recent: Last Vital Signs Temp 97.5 F 09/29/16 08:00 Pulse 81 09/29/16 08:00 Resp 18 09/29/16 08:00 BP 161/82 H 09/29/16 08:00 Pulse Ox 96 09/29/16 08:00 Weight - most recent: 189 lb 1.6 oz I&O - last 24 hours: Intake & Output 09/28/16 09/29/16 09/29/16 22:59 06:59 14:59 Intake Total 830 50 Output Total 325 425 Balance 505 -375 Lab Results last 24 hrs: Laboratory Results - last 24 hr 09/28/16 09/29/16 Range/Units 17:27 06:17 POC Glucose 244 H D 141 H D (80-116) mg/dL [place] Results last 24 hrs: Microbiology 09/27/16 18:55 Aerobic Blood Culture - Preliminary Blood - Venous - Lab Draw NO GROWTH AFTER 1 DAY Anaerobic Blood Culture - Preliminary NO GROWTH AFTER 1 DAY 09/27/16 18:50 Aerobic Blood Culture - Preliminary Blood - Venous NO GROWTH AFTER 1 DAY Anaerobic Blood Culture - Preliminary NO GROWTH AFTER 1 DAY 09/27/16 21:25 Urine Culture - Preliminary Urine, Sunshine Cath (Indwelling) Gram Positive Cocci Med Orders - Current: Current Medications Acetaminophen (Tylenol) 650 mg PO TID@0900,1400,2100 [facility] Last Admin: 09/28/16 20:32 Dose: 650 mg Amitriptyline HCl (Elavil) 50 mg GTUBE BEDTIME [facility] Last Admin: 09/28/16 20:31 Dose: 50 mg Artificial Tears (Refresh Tears 0.5%) 0 ml EYEBOTH DAILY [facility] Last Admin: 09/28/16 09:34 Dose: 1 drop Aspirin (Aspirin) 325 mg GTUBE DAILY [facility] Last Admin: 09/28/16 09:16 Dose: 325 mg Bisacodyl (Dulcolax) 10 mg RECTAL DAILY PRN PRN Reason: Constipation Carvedilol (Coreg) 50 mg GTUBE BID [facility] Last Admin: 09/28/16 20:26 Dose: 50 mg Cyclobenzaprine HCl (Flexeril) 5 mg GTUBE BID [facility] Last Admin: 09/28/16 20:32 Dose: 5 mg Gabapentin (Neurontin) 600 mg GTUBE BID [facility] Last Admin: 09/28/16 20:32 Dose: 600 mg Gabapentin (Neurontin) 1,200 mg GTUBE DAILY@14 [facility] Last Admin: 09/28/16 15:06 Dose: 1,200 mg Glucosamine/Chondroitin (Glucosamine-Chondroitin 500-400 Capsule) 1 cap .XX BID [facility] Sodium Chloride (Normal Saline) 250 mls @ 100 mls/hr IV ASDIRECTED [facility] Last Admin: 09/28/16 18:23 Dose: 100 mls/hr Levothyroxine Sodium (Levothyroxine) 75 mcg GTUBE DAILY@0600 [facility] Last Admin: 09/29/16 06:05 Dose: 75 mcg Lisinopril (Prinivil) 30 mg GTUBE DAILY [facility] Last Admin: 09/28/16 09:17 Dose: 30 mg Metformin HCl (Glucophage) 850 mg GTUBE 2000 [facility] Last Admin: 09/28/16 20:26 Dose: 850 mg Multivitamins/Folic Acid/Vitamin C (Centrum) 15 ml PO DAILY [facility] Potassium Chloride (Klor-Con) 20 meq GTUBE TID [facility] Last Admin: 09/28/16 20:32 Dose: 20 meq Tamsulosin HCl (Flomax) 0.8 mg .XX DAILY [facility] Last Admin: 09/28/16 09:17 Dose: 0.8 mg Discontinued Medications Acetaminophen (Tylenol Arthritis Pain) 650 mg PO TID@08,14,20 [facility] Guaifenesin (Mucinex) 600 mg PO BID [facility] Last Admin: 09/28/16 02:34 Dose: Not Given Levofloxacin/Dextrose 500 mg/ (Premix) 100 mls @ 100 mls/hr IV Q24H [facility] Last Admin: 09/28/16 18:24 Dose: 100 mls/hr Levofloxacin (Levaquin) 500 mg PO ONETIME STA Stop: 09/27/16 16:32 Last Admin: 09/27/16 16:59 Dose: 500 mg Non-Formulary Medication (Gluc Mcleod Dipo Ch/Jeremy Mcleod/C/Nik [Glucosamine Chondroitin Caplet]) 1 tab PO BID [facility] Last Admin: 09/28/16 02:34 Dose: Not Given Sodium Chloride (Saline Flush) 10 ml FLUSH ASDIRECTED PRN PRN Reason: Keep Vein Open Last Admin: 09/28/16 20:06 Dose: 10 ml - Exam General: alert, oriented, cooperative Lungs: Clear to auscultation, Normal respiratory effort. No: Crackles, Rales, Rhonchi Cardiovascular: Regular Rate, Regular Rhythm, No Murmurs Extremities: no edema - Problem List & Annotations (1) Pneumonia SNOMED Code(s): 421291055 Code(s): J18.9 - PNEUMONIA, UNSPECIFIED ORGANISM Status: Acute Current Visit: Yes (2) Palliative care status SNOMED Code(s): 051945274 Code(s): Z51.5 - ENCOUNTER FOR PALLIATIVE CARE Status: Acute Current Visit: Yes (3) UTI (urinary tract infection) SNOMED Code(s): 65645226 Code(s): N39.0 - URINARY TRACT INFECTION, SITE NOT SPECIFIED Status: Acute Current Visit: Yes - Problem List Review Problem List Initiated/Reviewed/Updated: Yes - My Orders Last 24 Hours: My Active Orders 09/28/16 08:44 Consult to Occupational Therapy [OT Evaluation and Treatment] [CONS] Routine 09/28/16 08:45 Consult to Physical Therapy [PT Evaluation and Treatment] [CONS] Routine 09/28/16 09:00 Aspirin 325 mg GTUBE DAILY Carboxymethylcellulose Sodium [Refresh Tears 0.5%] 0 ml EYEBOTH DAILY Chondroitin/Glucosamine [Glucosamine-Chondroitin 500-400 Capsule] 1 cap .XX BID Lisinopril [Prinivil] 30 mg GTUBE DAILY Tamsulosin [Flomax] 0.8 mg .XX DAILY 09/28/16 13:01 Sodium Chloride 0.9% [Saline Flush] 10 ml FLUSH ASDIRECTED PRN Saline Lock Insert [OM.PC] Routine 09/28/16 14:00 Gabapentin [Neurontin] 1,200 mg GTUBE DAILY@14 09/28/16 14:30 Acetaminophen [Tylenol] 650 mg PO TID@0900,1400,2100 09/28/16 17:19 Bisacodyl [Dulcolax] 10 mg RECTAL DAILY PRN 09/28/16 18:00 Sodium Chloride 0.9% [Normal Saline] 250 ml IV ASDIRECTED 09/29/16 08:26 Convert IV to Saline Lock [OM.PC] Routine 09/29/16 08:30 Levofloxacin [Levaquin] 500 mg PO Q24H 09/29/16 09:00 Multivitamins with Iron/Min [Centrum] 15 ml PO DAILY - Plan Plan:: 1. change Levaquin to by mouth. 2. Saline lock IV. 3. He is growing out gram-positive cocci in his urine. Wait for identification and sensitivity this was begun later today. 4. Social service to continue on working on patient discharge. Other he is going home with daughter or with help. That's what I've been told.
[2016-09-29] MEDS: Aspirin 325 MG Tab GTUBE SCH (08:46)
[2016-09-29] MEDS: Carvedilol 25 MG Tab GTUBE SCH ×2 (08:46→20:17)
[2016-09-29] MEDS: Tamsulosin 0.4 MG Cap.ER SCH (08:47)
[2016-09-29] MEDS: Potassium Chloride 20 MEQ Packet GTUBE SCH ×3 (08:47→20:18)
[2016-09-29] MEDS: Gabapentin 600 MG Tab GTUBE SCH ×3 (08:47→20:19)
[2016-09-29] MEDS: Acetaminophen Soln 650 MG/20.3 ML UD Cup PO SCH ×3 (08:47→20:18)
[2016-09-29] MEDS: Carboxymethylcellulose Sodium 0.5% Ophth Soln 15 ML Bottle EYEBOTH SCH (08:47)
[2016-09-29] MEDS: Lisinopril 10 MG Tab GTUBE SCH (08:47)
[2016-09-29] MEDS: Cyclobenzaprine 10 MG Tab GTUBE SCH ×2 (08:47→20:18)
[2016-09-29] MEDS ORDERED: Multivitamins with Minerals and Iron Liquid ML 240 ML Bottle PO SCH (09:00)
[2016-09-29] MEDS ORDERED: Multivitamins with Minerals and Iron Liquid ML 240 ML Bottle PO ONE ×2 (09:00→09:44)
--- NOTE | 2016-09-29 17:37 | PCM.SN ---
- Free Text/Narrative Note: Urine culture reviewed. Continue Levaquin and start Bactrim DS 1 by mouth twice a day.
[2016-09-29] MEDS ORDERED: Sulfamethoxazole/Trimethoprim 800-160 MG Tab PO SCH (17:45)
[2016-09-29] MEDS ORDERED: Levofloxacin 500 MG Tab PO SCH (18:00)
[2016-09-30] MEDS: Levothyroxine 75 MCG Tab GTUBE SCH (05:43)
[2016-09-30] MEDS ORDERED: Lactulose Soln 10 GM/15 ML 15 ML UD Cup PO SCH (09:00)
[2016-09-30] MEDS ORDERED: Multivitamins with Minerals and Iron Liquid ML 240 ML Bottle PO SCH (09:00)
[2016-09-30] MEDS ORDERED: Levofloxacin 500 MG Tab PO SCH (09:45)
[2016-09-30] MEDS: Tamsulosin 0.4 MG Cap.ER SCH (09:53)
[2016-09-30] MEDS: Carvedilol 25 MG Tab GTUBE SCH (09:53)
[2016-09-30] MEDS: Carboxymethylcellulose Sodium 0.5% Ophth Soln 15 ML Bottle EYEBOTH SCH (09:54)
[2016-09-30] MEDS: Lisinopril 10 MG Tab GTUBE SCH (09:54)
[2016-09-30] MEDS: Cyclobenzaprine 10 MG Tab GTUBE SCH (09:55)
[2016-09-30] MEDS: Aspirin 325 MG Tab GTUBE SCH (09:55)
[2016-09-30 09:56] VITALS: BP 152/78
[2016-09-30] MEDS: Acetaminophen Soln 650 MG/20.3 ML UD Cup PO SCH (09:56)
[2016-09-30] MEDS: Gabapentin 600 MG Tab GTUBE SCH (09:56)
[2016-09-30] MEDS: Potassium Chloride 20 MEQ Packet GTUBE SCH (09:56)
[2016-09-30] MEDS ORDERED: Lactulose Soln 10 GM/15 ML 15 ML UD Cup GTUBE SCH ×2 (10:00→10:08)
--- NOTE | 2016-09-30 13:16 | PN ---
DATE SEEN: 09/30/2016 REASON FOR VISIT: Pneumonia. HISTORY OF PRESENT ILLNESS: This is an 81-year-old male, who was admitted for pneumonia. He feels better this morning. He also has a history of lumbar stenosis status post decompression and muscular dystrophy with weakness. CHIEF COMPLAINT: He also has difficulty swallowing and he has had a PEG for the last 6 to 8 months. He does not feel strong enough to go home and he thinks he might benefit from physical and occupation rehabilitation in a swing bed status. REVIEW OF SYSTEMS: No fever or chills. He complains of constipation. No nausea or vomiting. MEDICATIONS: See nurse's notes. ALLERGIES: Reviewed. PHYSICAL EXAMINATION: VITAL SIGNS: Blood pressure is 155/77, temperature is normal, and pulse is 61. ENT: Negative. NECK: Supple. CHEST: Clear. HEART: Regular rate and rhythm. ABDOMEN: Soft. EXTREMITIES: No edema. LABORATORY DATA: Urine culture grew more than 100,000 MRSA. No new labs today. IMPRESSION: 1. Urinary tract infection. 2. Community-acquired pneumonia. 3. Status post discectomy due to lumbar stenosis. 4. Type 2 diabetes. 5. Dysphagia. 6. PEG tube in place. 7. Physical deconditioning. 8. History of muscular dystrophy. PLAN: The patient will need a wheelchair and a power lift at home eventually. For now, I propose discharged to swing bed on Levaquin and Bactrim. For constipation, I will order lactulose to see if this improves his symptoms. /[id number] STEVE/GIGI
--- NOTE | 2016-10-01 01:33 | DISCH ---
DISCHARGE DATE: 09/30/2016 REASON FOR ADMISSION: 1. Pneumonia. 2. Bacteremia. 3. Type 2 diabetes. 4. History of urinary tract infection. 5. Dysphagia, on PEG tube. 6. Hypertension. DISCHARGE DIAGNOSES: 1. Pneumonia. 2. Bacteremia. 3. Type 2 diabetes. 4. History of urinary tract infection. 5. Dysphagia, on PEG tube. 6. Hypertension. 7. Urinary tract infection. PROCEDURES: None. CONSULTATIONS: Physical and Occupational Therapy. BRIEF HISTORY: This is an 81-year-old male, who was brought in for shortness of breath, weakness, and a fall. He was also noted to have a cough and hemoptysis. An x-ray revealed pneumonia. He was started on Levaquin. A urine revealed Staphylococcus aureus that was resistant to Levaquin. Bactrim was added. The patient improved but was still weak and needed to go to swing bed for rehabilitation and disposition afterwards. Discharged him on 09/30 on oral Levaquin 500 mg a day and Bactrim DS one tablet b.i.d. He will continue with his home medications. I added lactulose 10 mg b.i.d. for constipation. Please note that I spent 35 minutes in the discharge of the patient. /[id number] STEVE/GIGI
== END 2016-09-30 09:45 | disposition swing bed (61) | DRG 194 ==
LOC: FB.ED 14:39 → FB.MS 17:42 → FB.ED 17:55
PROVIDERS: ADMIT Family Medicine; ATTEND Family Medicine
DX: J18.9 Pneumonia, unspecified organism (principal); G71.0 Muscular dystrophy; N39.0 Urinary tract infection, site not specified; R04.2 Hemoptysis; I10 Essential (primary) hypertension; E11.9 Type 2 diabetes mellitus without complications; Z79.84 Long term (current) use of oral hypoglycemic drugs; Z91.81 History of falling; E03.9 Hypothyroidism, unspecified; Z66 Do not resuscitate; Z51.5 Encounter for palliative care; W19.XXXA Unspecified fall, initial encounter; Y92.009 Unspecified place in unspecified non-institutional (private) residence as the place of occurrence of the external cause; R53.1 Weakness; Z93.1 Gastrostomy status; R13.10 Dysphagia, unspecified; B95.62 Methicillin resistant Staphylococcus aureus infection as the cause of diseases classified elsewhere; R29.6 Repeated falls; H54.7 Unspecified visual loss; N40.1 Benign prostatic hyperplasia with lower urinary tract symptoms; R33.8 Other retention of urine; Z88.8 Allergy status to other drugs, medicaments and biological substances; Z79.82 Long term (current) use of aspirin
CPT/HCPCS: 36415; 70450; 71020; 72125; 80048; 81001; 85025; 85610; 99284; A9270; 82962; 83605; 87040; 87086; 87088; 87186; 97110-GP; 97116-GP; 97161-GP; 97530-GP; 99285; J1956; J7050

== ENCOUNTER 2016-09-30 09:45 | Inpatient (IN) | payer MEDICARE, OTHER ==
[2016-09-30] MEDS ORDERED: Acetaminophen Soln 650 MG/20.3 ML UD Cup PO SCH (14:00)
[2016-09-30] MEDS: Gabapentin 600 MG Tab GTUBE SCH ×2 (14:01→21:16)
[2016-09-30] MEDS: Potassium Chloride 20 MEQ Packet GTUBE SCH ×2 (14:01→21:16)
[2016-09-30] MEDS: Bisacodyl 10 MG Supp RECTAL PRN (17:43)
[2016-09-30] MEDS: Levofloxacin 500 MG Tab GTUBE SCH (17:45)
[2016-09-30] MEDS: Lactulose Soln 10 GM/15 ML 15 ML UD Cup GTUBE SCH (21:10)
[2016-09-30] MEDS: Carvedilol 25 MG Tab GTUBE SCH (21:10)
[2016-09-30] MEDS: Cyclobenzaprine 10 MG Tab GTUBE SCH (21:15)
[2016-09-30] MEDS: Acetaminophen Soln 650 MG/20.3 ML UD Cup GTUBE SCH (21:18)
[2016-09-30] MEDS: Sulfamethoxazole/Trimethoprim 800-160 MG Tab GTUBE SCH (21:18)
[2016-10-01] MEDS: Levothyroxine 75 MCG Tab GTUBE SCH (05:45)
[2016-10-01] MEDS: Multivitamins with Minerals and Iron Liquid ML 240 ML Bottle GTUBE SCH (08:06)
[2016-10-01] MEDS: Lactulose Soln 10 GM/15 ML 15 ML UD Cup GTUBE SCH ×2 (08:07→20:52)
[2016-10-01] MEDS: Carvedilol 25 MG Tab GTUBE SCH ×2 (08:07→20:55)
[2016-10-01] MEDS: Aspirin 325 MG Tab GTUBE SCH (08:08)
[2016-10-01] MEDS: Cyclobenzaprine 10 MG Tab GTUBE SCH ×2 (08:08→20:52)
[2016-10-01] MEDS: Tamsulosin 0.4 MG Cap.ER SCH (08:08)
[2016-10-01] MEDS: Gabapentin 600 MG Tab GTUBE SCH ×3 (08:09→20:53)
[2016-10-01] MEDS: Potassium Chloride 20 MEQ Packet GTUBE SCH ×3 (08:09→20:52)
[2016-10-01] MEDS: Lisinopril 10 MG Tab GTUBE SCH (08:10)
[2016-10-01] MEDS: Sulfamethoxazole/Trimethoprim 800-160 MG Tab GTUBE SCH ×2 (08:11→20:53)
[2016-10-01] MEDS: Carboxymethylcellulose Sodium 0.5% Ophth Soln 15 ML Bottle EYEBOTH SCH (08:11)
[2016-10-01] MEDS: Acetaminophen Soln 650 MG/20.3 ML UD Cup GTUBE SCH ×3 (08:12→20:53)
[2016-10-01] MEDS: Bisacodyl 10 MG Supp RECTAL PRN (10:22)
[2016-10-01] MEDS: Levofloxacin 500 MG Tab GTUBE SCH (17:38)
[2016-10-02] MEDS: Levothyroxine 75 MCG Tab GTUBE SCH (06:08)
[2016-10-02] MEDS: Multivitamins with Minerals and Iron Liquid ML 240 ML Bottle GTUBE SCH (08:04)
[2016-10-02] MEDS: Acetaminophen Soln 650 MG/20.3 ML UD Cup GTUBE SCH ×3 (08:04→20:48)
[2016-10-02] MEDS: Aspirin 325 MG Tab GTUBE SCH (08:04)
[2016-10-02] MEDS: Carboxymethylcellulose Sodium 0.5% Ophth Soln 15 ML Bottle EYEBOTH SCH (08:04)
[2016-10-02] MEDS: Lactulose Soln 10 GM/15 ML 15 ML UD Cup GTUBE SCH ×2 (08:05→20:47)
[2016-10-02] MEDS: Tamsulosin 0.4 MG Cap.ER SCH (08:05)
[2016-10-02] MEDS: Cyclobenzaprine 10 MG Tab GTUBE SCH ×2 (08:05→20:47)
[2016-10-02] MEDS: Gabapentin 600 MG Tab GTUBE SCH ×3 (08:06→20:46)
[2016-10-02] MEDS: Sulfamethoxazole/Trimethoprim 800-160 MG Tab GTUBE SCH ×2 (08:07→20:47)
[2016-10-02] MEDS: Carvedilol 25 MG Tab GTUBE SCH ×2 (08:07→20:48)
[2016-10-02] MEDS: Potassium Chloride 20 MEQ Packet GTUBE SCH ×3 (08:08→20:47)
[2016-10-02] MEDS: Lisinopril 10 MG Tab GTUBE SCH (08:08)
[2016-10-02] MEDS: Levofloxacin 500 MG Tab GTUBE SCH (17:18)
[2016-10-03] MEDS: Levothyroxine 75 MCG Tab GTUBE SCH (05:44)
[2016-10-03] MEDS: Acetaminophen Soln 650 MG/20.3 ML UD Cup GTUBE SCH ×3 (08:02→20:50)
[2016-10-03] MEDS: Multivitamins with Minerals and Iron Liquid ML 240 ML Bottle GTUBE SCH (08:03)
[2016-10-03] MEDS: Tamsulosin 0.4 MG Cap.ER SCH (08:03)
[2016-10-03] MEDS: Lactulose Soln 10 GM/15 ML 15 ML UD Cup GTUBE SCH ×2 (08:03→20:48)
[2016-10-03] MEDS: Aspirin 325 MG Tab GTUBE SCH (08:04)
[2016-10-03] MEDS: Potassium Chloride 20 MEQ Packet GTUBE SCH ×3 (08:04→20:49)
[2016-10-03] MEDS: Carboxymethylcellulose Sodium 0.5% Ophth Soln 15 ML Bottle EYEBOTH SCH (08:04)
[2016-10-03] MEDS: Gabapentin 600 MG Tab GTUBE SCH ×3 (08:04→20:49)
[2016-10-03] MEDS: Cyclobenzaprine 10 MG Tab GTUBE SCH ×2 (08:05→20:49)
[2016-10-03] MEDS: Sulfamethoxazole/Trimethoprim 800-160 MG Tab GTUBE SCH ×2 (08:05→21:07)
[2016-10-03] MEDS: Carvedilol 25 MG Tab GTUBE SCH ×2 (08:06→20:48)
[2016-10-03] MEDS: Lisinopril 10 MG Tab GTUBE SCH (08:06)
[2016-10-03] MEDS: Levofloxacin 500 MG Tab GTUBE SCH (17:39)
[2016-10-04] MEDS: Levothyroxine 75 MCG Tab GTUBE SCH (05:43)
[2016-10-04] MEDS: Bisacodyl 10 MG Supp RECTAL PRN (06:18)
[2016-10-04] MEDS: Potassium Chloride 20 MEQ Packet GTUBE SCH ×3 (08:10→20:02)
[2016-10-04] MEDS: Carboxymethylcellulose Sodium 0.5% Ophth Soln 15 ML Bottle EYEBOTH SCH (08:11)
[2016-10-04] MEDS: Acetaminophen Soln 650 MG/20.3 ML UD Cup GTUBE SCH ×3 (08:11→20:02)
[2016-10-04] MEDS: Aspirin 325 MG Tab GTUBE SCH (08:11)
[2016-10-04] MEDS: Multivitamins with Minerals and Iron Liquid ML 240 ML Bottle GTUBE SCH (08:11)
[2016-10-04] MEDS: Lactulose Soln 10 GM/15 ML 15 ML UD Cup GTUBE SCH (08:12)
[2016-10-04] MEDS: Cyclobenzaprine 10 MG Tab GTUBE SCH ×2 (08:12→20:02)
[2016-10-04] MEDS: Gabapentin 600 MG Tab GTUBE SCH ×3 (08:12→20:01)
[2016-10-04] MEDS: Lisinopril 10 MG Tab GTUBE SCH (08:12)
[2016-10-04] MEDS: Tamsulosin 0.4 MG Cap.ER SCH (08:12)
[2016-10-04] MEDS: Carvedilol 25 MG Tab GTUBE SCH ×2 (08:13→20:02)
[2016-10-04] MEDS: Sulfamethoxazole/Trimethoprim 800-160 MG Tab GTUBE SCH ×2 (08:15→20:01)
[2016-10-04] MEDS: Lactulose Soln 10 GM/15 ML 30 ML UD Cup GTUBE SCH ×2 (17:21→20:03)
[2016-10-04] MEDS: Levofloxacin 500 MG Tab GTUBE SCH (17:21)
[2016-10-04] MEDS: Polyethylene Glycol 3350 Powder 17 GM Packet GTUBE SCH (20:03)
[2016-10-05] MEDS: Levothyroxine 75 MCG Tab GTUBE SCH (05:10)
[2016-10-05] MEDS: Carvedilol 25 MG Tab GTUBE SCH ×2 (08:17→20:17)
[2016-10-05] MEDS: Cyclobenzaprine 10 MG Tab GTUBE SCH ×2 (08:17→20:18)
[2016-10-05] MEDS: Aspirin 325 MG Tab GTUBE SCH (08:17)
[2016-10-05] MEDS: Lactulose Soln 10 GM/15 ML 30 ML UD Cup GTUBE SCH ×2 (08:17→20:15)
[2016-10-05] MEDS: Multivitamins with Minerals and Iron Liquid ML 240 ML Bottle GTUBE SCH (08:17)
[2016-10-05] MEDS: Tamsulosin 0.4 MG Cap.ER SCH (08:18)
[2016-10-05] MEDS: Gabapentin 600 MG Tab GTUBE SCH ×3 (08:18→20:20)
[2016-10-05] MEDS: Lisinopril 10 MG Tab GTUBE SCH (08:18)
[2016-10-05] MEDS: Potassium Chloride 20 MEQ Packet GTUBE SCH ×3 (08:18→20:19)
[2016-10-05] MEDS: Sulfamethoxazole/Trimethoprim 800-160 MG Tab GTUBE SCH (08:19)
[2016-10-05] MEDS: Acetaminophen Soln 650 MG/20.3 ML UD Cup GTUBE SCH ×3 (08:19→20:20)
[2016-10-05] MEDS: Carboxymethylcellulose Sodium 0.5% Ophth Soln 15 ML Bottle EYEBOTH SCH (08:19)
[2016-10-05] MEDS: Polyethylene Glycol 3350 Powder 17 GM Packet GTUBE SCH (20:19)
[2016-10-06] MEDS: Levothyroxine 75 MCG Tab GTUBE SCH (05:22)
[2016-10-06] MEDS: Aspirin 325 MG Tab GTUBE SCH (08:32)
[2016-10-06] MEDS: Lactulose Soln 10 GM/15 ML 30 ML UD Cup GTUBE SCH ×2 (08:33→20:14)
[2016-10-06] MEDS: Carvedilol 25 MG Tab GTUBE SCH ×2 (08:33→20:10)
[2016-10-06] MEDS: Multivitamins with Minerals and Iron Liquid ML 240 ML Bottle GTUBE SCH (08:33)
[2016-10-06] MEDS: Tamsulosin 0.4 MG Cap.ER SCH (08:34)
[2016-10-06] MEDS: Cyclobenzaprine 10 MG Tab GTUBE SCH ×2 (08:34→20:10)
[2016-10-06] MEDS: Potassium Chloride 20 MEQ Packet GTUBE SCH ×3 (08:35→20:14)
[2016-10-06] MEDS: Gabapentin 600 MG Tab GTUBE SCH ×3 (08:36→20:10)
[2016-10-06] MEDS: Lisinopril 10 MG Tab GTUBE SCH (08:37)
[2016-10-06] MEDS: Carboxymethylcellulose Sodium 0.5% Ophth Soln 15 ML Bottle EYEBOTH SCH (08:37)
[2016-10-06] MEDS: Acetaminophen Soln 650 MG/20.3 ML UD Cup GTUBE SCH ×3 (08:37→20:14)
[2016-10-06] MEDS: Polyethylene Glycol 3350 Powder 17 GM Packet GTUBE SCH (20:14)
[2016-10-07] MEDS: Levothyroxine 75 MCG Tab GTUBE SCH (05:19)
--- NOTE | 2016-10-07 08:28 | PCM.PN ---
- General Info Date of Service: 10/07/16 Admission Dx/Problem (Free Text): patient is without concerns today. He denies cough, fevers, shortness of breath , dysuria although he has a Sunshine catheter in place. He states his leg strength is getting better. - Patient Data Vitals - most recent: Last Vital Signs Temp 98.3 F 10/06/16 07:20 Pulse 58 L 10/06/16 20:10 Resp 22 H 10/06/16 07:20 BP 146/77 H 10/06/16 20:10 Pulse Ox 96 10/06/16 07:20 Weight - most recent: 189 lb 1.6 oz I&O - last 24 hours: Intake & Output 10/06/16 10/07/16 10/07/16 22:59 06:59 14:59 Intake Total 980 Output Total 700 350 Balance 280 -350 Lab Results last 24 hrs: Laboratory Results - last 24 hr 10/06/16 10/07/16 Range/Units 19:03 05:26 POC Glucose 121 H 121 H (80-116) mg/dL Med Orders - Current: Current Medications Acetaminophen (Tylenol) 650 mg GTUBE TID@0900,1400,2100 [facility] Last Admin: 10/06/16 20:14 Dose: 650 mg Amitriptyline HCl (Elavil) 50 mg GTUBE BEDTIME [facility] Last Admin: 10/06/16 20:10 Dose: 50 mg Artificial Tears (Refresh Tears 0.5%) 0 ml EYEBOTH DAILY [facility] Last Admin: 10/06/16 08:37 Dose: 1 drop Aspirin (Aspirin) 325 mg GTUBE DAILY [facility] Last Admin: 10/06/16 08:32 Dose: 325 mg Bisacodyl (Dulcolax) 10 mg RECTAL DAILY PRN PRN Reason: Constipation Last Admin: 10/04/16 06:18 Dose: 10 mg Carvedilol (Coreg) 50 mg GTUBE BID [facility] Last Admin: 10/06/16 20:10 Dose: 50 mg Cyclobenzaprine HCl (Flexeril) 5 mg GTUBE BID [facility] Last Admin: 10/06/16 20:10 Dose: 5 mg Gabapentin (Neurontin) 600 mg GTUBE BID [facility] Last Admin: 10/06/16 20:10 Dose: 600 mg Gabapentin (Neurontin) 1,200 mg GTUBE DAILY@14 [facility] Last Admin: 10/06/16 13:50 Dose: 1,200 mg Lactulose (Cephulac) 20 gm GTUBE BID [facility] Last Admin: 10/06/16 20:14 Dose: 20 gm Levothyroxine Sodium (Levothyroxine) 75 mcg GTUBE DAILY@0600 [facility] Last Admin: 10/07/16 05:19 Dose: 75 mcg Lisinopril (Prinivil) 30 mg GTUBE DAILY [facility] Last Admin: 10/06/16 08:37 Dose: 30 mg Metformin HCl (Glucophage) 850 mg GTUBE 2000 [facility] Last Admin: 10/06/16 20:10 Dose: 850 mg Multivitamins/Folic Acid/Vitamin C (Centrum) 15 ml GTUBE DAILY [facility] Last Admin: 10/06/16 08:33 Dose: 15 ml Polyethylene Glycol (Miralax) 17 gm GTUBE BEDTIME [facility] Last Admin: 10/06/16 20:14 Dose: 17 gm Potassium Chloride (Klor-Con) 20 meq GTUBE TID [facility] Last Admin: 10/06/16 20:14 Dose: 20 meq Tamsulosin HCl (Flomax) 0.8 mg .XX DAILY [facility] Last Admin: 10/06/16 08:34 Dose: 0.8 mg Discontinued Medications Acetaminophen (Tylenol) 650 mg PO TID@0900,1400,2100 [facility] Last Admin: 09/30/16 14:01 Dose: 650 mg Lactulose (Chronulac) 10 gm GTUBE BID [facility] Stop: 10/05/16 09:01 Last Admin: 10/04/16 08:12 Dose: 10 gm Levofloxacin (Levaquin) 500 mg GTUBE Q24H [facility] Stop: 10/04/16 18:01 Last Admin: 10/04/16 17:21 Dose: 500 mg Trimethoprim/Sulfamethoxazole (Septra Ds) 1 tab GTUBE BID [facility] Stop: 10/05/16 09:01 Last Admin: 10/05/16 08:19 Dose: 1 tab - Exam General: alert, oriented, cooperative Neck: supple Lungs: Clear to auscultation, Normal respiratory effort Cardiovascular: Regular Rate, Regular Rhythm, No Murmurs Extremities: no edema Neurological: normal speech, strength equal bilateral, other (weakness arms and legs due to muscular dystrophy. Patient in wheelchair.). No: normal gait, normal tone Psy/Mental Status: alert, normal affect, normal mood - Problem List & Annotations (1) Muscular dystrophy SNOMED Code(s): 07703141 Code(s): G71.0 - MUSCULAR DYSTROPHY Status: Acute Current Visit: No (2) Pneumonia SNOMED Code(s): 571382600 Code(s): J18.9 - PNEUMONIA, UNSPECIFIED ORGANISM Status: Acute Current Visit: No (3) UTI (urinary tract infection) SNOMED Code(s): 51066336 Code(s): N39.0 - URINARY TRACT INFECTION, SITE NOT SPECIFIED Status: Acute Priority: High Current Visit: No - Problem List Review Problem List Initiated/Reviewed/Updated: Yes - Plan Plan:: 1. Discharge home with home health, PT, OT.
[2016-10-07] MEDS: Aspirin 325 MG Tab GTUBE SCH (08:30)
[2016-10-07] MEDS: Carvedilol 25 MG Tab GTUBE SCH (08:30)
[2016-10-07] MEDS: Cyclobenzaprine 10 MG Tab GTUBE SCH (08:30)
[2016-10-07] MEDS: Lisinopril 10 MG Tab GTUBE SCH (08:31)
[2016-10-07] MEDS: Gabapentin 600 MG Tab GTUBE SCH (08:31)
[2016-10-07] MEDS: Tamsulosin 0.4 MG Cap.ER SCH (08:31)
[2016-10-07] MEDS: Potassium Chloride 20 MEQ Packet GTUBE SCH (08:31)
[2016-10-07] MEDS: Carboxymethylcellulose Sodium 0.5% Ophth Soln 15 ML Bottle EYEBOTH SCH (08:31)
[2016-10-07 08:32] VITALS: BP 166/78
[2016-10-07] MEDS: Multivitamins with Minerals and Iron Liquid ML 240 ML Bottle GTUBE SCH (08:32)
[2016-10-07] MEDS: Acetaminophen Soln 650 MG/20.3 ML UD Cup GTUBE SCH (08:32)
[2016-10-07] MEDS: Lactulose Soln 10 GM/15 ML 30 ML UD Cup GTUBE SCH (08:32)
--- NOTE | 2016-10-07 08:39 | PCM.DCSUM1 ---
Discharge Summary - Hospital Course Free Text/Narrative:: Patient did well in therapy. His family had a discussion where he should go. His felt that he should go the shelter and his daughters wants to take him home. They all had a consensus they would try to take him home and the daughters would help more than they have been. His strength improved because his legs are very weak with infection. His Bactrim and Levaquin treatment were completed. PT and OT were continued. He'll be discharged to home on home health/PT/OT. Brief History: This is an 81-year-old male patient who has a muscular dystrophy has had fatigue, cough, hemoptysis. His brought him in because he fell and he is very weak. He is in a wheelchair but she is able to transfer him. He was in the hospital 2 weeks ago for 4 days for UTI. Has indwelling catheter. He cannot feel his bladder at this time. He feels chills but no fevers.patient was found to have MRSA urinary tract infection placed on Bactrim. And pneumonia they was placed on Levaquin. He was treated then transferred to swing bed and continued treatment and PT/OT. - Discharge Data Discharge Date: 10/07/16 Discharge Disposition: Home, W Home Health Agency 06 Condition: Fair - Discharge Diagnosis/Problem(s) (1) Muscular dystrophy SNOMED Code(s): 75632446 ICD Code: G71.0 - MUSCULAR DYSTROPHY Status: Acute Current Visit: No (2) Pneumonia SNOMED Code(s): 580718894 ICD Code: J18.9 - PNEUMONIA, UNSPECIFIED ORGANISM Status: Acute Current Visit: No (3) UTI (urinary tract infection) SNOMED Code(s): 73029085 ICD Code: N39.0 - URINARY TRACT INFECTION, SITE NOT SPECIFIED Status: Acute Priority: High Current Visit: No - Patient Summary/Data Consults: Consultations 09/30/16 10:32 PT Evaluation and Treatment [CONS] Routine Please Evaluate and Treat. PT Reason for Consult: Strengthening This query below is only for informational purposes and is not editable. - Patient Instructions Diet: Diabetic Diet Activity: As Tolerated Driving: Do Not Drive Showering/Bathing: May Shower Notify Provider of: Fever, Increased Pain, Swelling and Redness, Drainage, Nausea and/or Vomiting Other/Special Instructions: 1. Recheck with Dr. Terrazas in 7-10 days. 2. Home health/PT/OT in regards to strengthening, ambulation, medical teaching, home safety evaluations. - Discharge Plan Home Medications: Home Meds Aspirin 325 mg PO DAILY 01/28/14 [History] Carvedilol 50 mg PO BID 01/29/14 [History] Levothyroxine Sodium [Synthroid] 75 mcg PO DAILY@0600 01/29/14 [History] Multivitamin [Daily Multiple Vitamin] 1 tab PO DAILY 01/29/14 [History] Amitriptyline [Elavil] 50 mg PO BEDTIME 11/06/15 [History] Carboxymethylcellulose Sodium [Refresh Tears] 1 drop EYEBOTH DAILY 11/06/15 [ History] Cyclobenzaprine [Flexeril] 5 mg PO BID 11/06/15 [History] Lisinopril 30 mg PO DAILY 11/06/15 [History] Gabapentin [Neurontin] 1,200 mg PO DAILY@14 09/14/16 [History] Gabapentin [Neurontin] 600 mg GTUBE BID 09/14/16 [History] Gluc Mcleod Dipo Ch/Jeremy Mcleod/C/Nik [Glucosamine Chondroitin Caplet] 1 tab PO BID [History] Potassium Chloride 20 meq PO TID 09/27/16 [History] Tamsulosin [Flomax] 0.8 mg PO DAILY 09/27/16 [History] metFORMIN [Glucophage] 850 mg GTUBE 2000 09/27/16 [History] Patient Handouts: Type 2 Diabetes Mellitus, Adult, Urinary Tract Infection, Adult - Discharge Summary/Plan Comment DC Time >30 min.: No - Patient Data Vitals - Most Recent: Last Vital Signs Temp 98.3 F 10/06/16 07:20 Pulse 60 10/07/16 08:30 Resp 22 H 10/06/16 07:20 BP 166/78 H 10/07/16 08:31 Pulse Ox 96 10/06/16 07:20 Weight - Most Recent: 189 lb 1.6 oz I&O - Last 24 hours: Intake & Output 10/06/16 10/07/16 10/07/16 22:59 06:59 14:59 Intake Total 980 Output Total 700 350 Balance 280 -350 Lab Results - Last 24 hrs: Laboratory Results - last 24 hr 10/06/16 10/07/16 Range/Units 19:03 05:26 POC Glucose 121 H 121 H (80-116) mg/dL Med Orders - Current: Current Medications Acetaminophen (Tylenol) 650 mg GTUBE TID@0900,1400,2100 [facility] Last Admin: 10/07/16 08:32 Dose: 650 mg Amitriptyline HCl (Elavil) 50 mg GTUBE BEDTIME [facility] Last Admin: 10/06/16 20:10 Dose: 50 mg Artificial Tears (Refresh Tears 0.5%) 0 ml EYEBOTH DAILY [facility] Last Admin: 10/07/16 08:31 Dose: 1 drop Aspirin (Aspirin) 325 mg GTUBE DAILY [facility] Last Admin: 10/07/16 08:30 Dose: 325 mg Bisacodyl (Dulcolax) 10 mg RECTAL DAILY PRN PRN Reason: Constipation Last Admin: 10/04/16 06:18 Dose: 10 mg Carvedilol (Coreg) 50 mg GTUBE BID [facility] Last Admin: 10/07/16 08:30 Dose: 50 mg Cyclobenzaprine HCl (Flexeril) 5 mg GTUBE BID [facility] Last Admin: 10/07/16 08:30 Dose: 5 mg Gabapentin (Neurontin) 600 mg GTUBE BID [facility] Last Admin: 10/07/16 08:31 Dose: 600 mg Gabapentin (Neurontin) 1,200 mg GTUBE DAILY@14 [facility] Last Admin: 10/06/16 13:50 Dose: 1,200 mg Lactulose (Cephulac) 20 gm GTUBE BID [facility] Last Admin: 10/07/16 08:32 Dose: 20 gm Levothyroxine Sodium (Levothyroxine) 75 mcg GTUBE DAILY@0600 [facility] Last Admin: 10/07/16 05:19 Dose: 75 mcg Lisinopril (Prinivil) 30 mg GTUBE DAILY [facility] Last Admin: 10/07/16 08:31 Dose: 30 mg Metformin HCl (Glucophage) 850 mg GTUBE 2000 [facility] Last Admin: 10/06/16 20:10 Dose: 850 mg Multivitamins/Folic Acid/Vitamin C (Centrum) 15 ml GTUBE DAILY [facility] Last Admin: 10/07/16 08:32 Dose: 15 ml Polyethylene Glycol (Miralax) 17 gm GTUBE BEDTIME [facility] Last Admin: 10/06/16 20:14 Dose: 17 gm Potassium Chloride (Klor-Con) 20 meq GTUBE TID [facility] Last Admin: 10/07/16 08:31 Dose: 20 meq Tamsulosin HCl (Flomax) 0.8 mg .XX DAILY [facility] Last Admin: 10/07/16 08:31 Dose: 0.8 mg Discontinued Medications Acetaminophen (Tylenol) 650 mg PO TID@0900,1400,2100 [facility] Last Admin: 09/30/16 14:01 Dose: 650 mg Lactulose (Chronulac) 10 gm GTUBE BID [facility] Stop: 10/05/16 09:01 Last Admin: 10/04/16 08:12 Dose: 10 gm Levofloxacin (Levaquin) 500 mg GTUBE Q24H [facility] Stop: 10/04/16 18:01 Last Admin: 10/04/16 17:21 Dose: 500 mg Trimethoprim/Sulfamethoxazole (Septra Ds) 1 tab GTUBE BID [facility] Stop: 10/05/16 09:01 Last Admin: 10/05/16 08:19 Dose: 1 tab *Q Meaningful Use (DIS) - VTE *Q VTE Criteria *Q: - Stroke *Q Stroke Criteria *Q: - AMI *Q AMI Criteria *Q:
== END 2016-10-07 11:35 | disposition home health service (06) | DRG 947 ==
LOC: FB.MS 09:45
PROVIDERS: ADMIT Family Medicine; ATTEND Family Medicine
DX: R53.1 Weakness (principal); J18.9 Pneumonia, unspecified organism; G71.0 Muscular dystrophy; N39.0 Urinary tract infection, site not specified; E11.9 Type 2 diabetes mellitus without complications; R13.10 Dysphagia, unspecified; I10 Essential (primary) hypertension; Z93.1 Gastrostomy status; Z66 Do not resuscitate; B95.62 Methicillin resistant Staphylococcus aureus infection as the cause of diseases classified elsewhere; Z79.82 Long term (current) use of aspirin; Z79.84 Long term (current) use of oral hypoglycemic drugs
CPT/HCPCS: 82962; 97110-GP; 97116-GP; 97530-GP; A9270-GY

== ENCOUNTER 2016-11-30 10:28 | Emergency (ER) | payer MEDICARE, OTHER ==
--- NOTE | 2016-11-30 11:04 | EDM.PDOC ---
ED HPI GENERAL MEDICAL PROBLEM - General Chief Complaint: Genitourinary Problem Stated Complaint: CATH TUBE Time Seen by Provider: 11/30/16 10:50 Source of Information: Reports: Patient, Old Records, RN History Limitations: Reports: No Limitations - History of Present Illness INITIAL COMMENTS - FREE TEXT/NARRATIVE: 81 yo male presents with problems with his suprapubic catheter. Has had UTI's in the past, but has not been tested lately. His complaint today is that he is having urine come out both the catheter and his penis. He reported this same problem to the surgeon who placed the catheter and a larger size suprapubic was placed after the previous one was found to be plugged. 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) (Catheter changed to larger one about 2 weeks ago.) - Related Data Allergies Allergy/AdvReac Type Severity Reaction Status Date / Time amlodipine besylate Allergy Edema Verified 11/30/16 10:32 [From [facility]] Home Meds: Home Meds Aspirin 325 mg PO DAILY 01/28/14 [History] Carvedilol 50 mg PO BID 01/29/14 [History] Levothyroxine Sodium [Synthroid] 75 mcg PO DAILY@0600 01/29/14 [History] Multivitamin [Daily Multiple Vitamin] 1 tab PO DAILY 01/29/14 [History] Amitriptyline [Elavil] 50 mg PO BEDTIME 11/06/15 [History] Carboxymethylcellulose Sodium [Refresh Tears] 1 drop EYEBOTH DAILY 11/06/15 [ History] Cyclobenzaprine [Flexeril] 5 mg PO BID 11/06/15 [History] Lisinopril 30 mg PO DAILY 11/06/15 [History] Gabapentin [Neurontin] 1,200 mg PO DAILY@14 09/14/16 [History] Gabapentin [Neurontin] 600 mg GTUBE BID 09/14/16 [History] Gluc Mcleod Dipo Ch/Jeremy Mcleod/C/Nik [Glucosamine Chondroitin Caplet] 1 tab PO BID [History] Potassium Chloride 20 meq PO TID 09/27/16 [History] Tamsulosin [Flomax] 0.8 mg PO DAILY 09/27/16 [History] metFORMIN [Glucophage] 850 mg GTUBE 2000 09/27/16 [History] Ciprofloxacin HCl [Cipro] 250 mg PO BID #14 tablet 11/30/16 [Rx] Past Medical History HEENT History: Reports: Cataract, Impaired Vision Cardiovascular History: Reports: Hypertension Respiratory History: Reports: None Gastrointestinal History: Reports: Other (See Below) Other Gastrointestinal History: PEG tube; NPO Genitourinary History: Reports: BPH, Retention, Urinary Other Genitourinary History: suprapubic cath put in 09/14/16 Musculoskeletal History: Reports: Arthritis, Back Pain, Chronic, Muscular Dystrophy Neurological History: Reports: None Psychiatric History: Reports: None Endocrine/Metabolic History: Reports: Diabetes, Type II, Hypothyroidism Hematologic History: Reports: None Immunologic History: Reports: None Oncologic (Cancer) History: Reports: None Dermatologic History: Reports: None - Infectious Disease History Infectious Disease History: Reports: Chicken Pox, Measles, MRSA, Mumps, Shingles - Past Surgical History Head Surgeries/Procedures: Reports: None HEENT Surgical History: Reports: Cataract Surgery, Naso-Sinus Surgery GI Surgical History: Reports: Colonoscopy, EGD, Other (See Below) Other GI Surgeries/Procedures: PEG tube placed Male Surgical History: Reports: Suprapubic Catheter Placement Neurological Surgical History: Reports: Laminectomy, Other (See Below) Social & Family History - Family History Family Medical History: Noncontributory - Tobacco Use Smoking Status *Q: Never Smoker Second Hand Smoke Exposure: No - Caffeine Use Caffeine Use: Reports: None - Alcohol Use Days Per Week of Alcohol Use: 1 Number of Drinks Per Day: 1 Total Drinks Per Week: 1 - Recreational Drug Use Recreational Drug Use: No Drug Use in Last 12 Months: No - Living Situation & Occupation Occupation: Retired ED ROS GENERAL - Review of Systems Review Of Systems: See Below Constitutional: Reports: No Symptoms Respiratory: Reports: No Symptoms Cardiovascular: Reports: No Symptoms GI/Abdominal: Reports: No Symptoms : Reports: Other (mild suprapubic pressure, urine coming out of both penis and catheter. ) Musculoskeletal: Reports: No Symptoms Skin: Reports: No Symptoms Neurological: Reports: No Symptoms Psychiatric: Reports: No Symptoms ED EXAM, RENAL/ - Physical Exam Exam: See Below Exam Limited By: No Limitations General Appearance: Alert, WD/WN, No Apparent Distress Eye Exam: Bilateral Eye: Normal Inspection Ears: Normal External Exam, Normal Canal, Hearing Grossly Normal Nose: Normal Inspection, No Blood Throat/Mouth: Normal Inspection, Normal Voice, No Airway Compromise Head: Atraumatic, Normocephalic Neck: Normal Inspection Neurological: Alert, Oriented, No Motor/Sensory Deficits Psychiatric: Normal Affect, Normal Mood Skin Exam: Warm, Dry, Intact, Normal Color, No Rash Lymphatic: No Adenopathy Course - Vital Signs Text/Narrative:: Suprapubic catheter flushed without difficulty. Bladder scan-150 ml, catheter changed. Last Recorded V/S: Last Vital Signs Temp 36.5 C 11/30/16 10:33 Pulse 64 11/30/16 10:33 Resp 20 11/30/16 10:33 BP 162/70 H 11/30/16 10:33 Pulse Ox 97 11/30/16 10:33 - Orders/Labs/Meds Orders: Active Orders 24 hr Category Date Time Status CULTURE URINE [RM] Stat Lab 11/30/16 11:39 Uncollected Labs: Laboratory Tests 11/30/16 Range/Units 11:03 Urine Color Yellow (YELLOW) Urine Appearance Cloudy (CLEAR) Urine pH 7.0 H (5.0-6.5) Ur Specific [place] 1.005 L (1.010-1.025) Urine Protein 100 H (NEGATIVE) mg/dL Urine Glucose (UA) Normal (NEGATIVE) mg/dL Urine Ketones Negative (NEGATIVE) mg/dL Urine Occult Blood Large H (NEGATIVE) Urine Nitrite Negative (NEGATIVE) Urine Bilirubin Negative (NEGATIVE) Urine Urobilinogen Normal (NEGATIVE) mg/dL Ur Leukocyte Esterase Large H (NEGATIVE) Urine RBC >100 H (0) Urine WBC >100 H (0) Ur Squamous Epith Cells Few H (NS,R,O) Urine Bacteria Many H (NS) Departure - Departure Time of Disposition: 11:43 Disposition: Home, Self-Care 01 Condition: Good Clinical Impression: Cystitis, Catheter (urine) change required - Discharge Information Prescriptions: Ciprofloxacin HCl [Cipro] 250 mg PO BID #14 tablet Referrals: Renato Terrazas MD [Primary Care Provider] - Forms: ED Department Discharge Additional Instructions: Take ciprofloxacin as directed. Drink ample amouts of water. F/U in the clinic to review the results of your urine culture late Monday afternoon, call for an appt. - My Orders Last 24 Hours: My Active Orders 11/30/16 11:39 CULTURE URINE [RM] Stat - Assessment/Plan Last 24 Hours: My Active Orders 11/30/16 11:39 CULTURE URINE [RM] Stat
[2016-11-30 12:29] VITALS: BP 157/87
== END 2016-11-30 11:55 | disposition home or self-care (01) ==
LOC: FB.ED 10:28
DX: N30.90 Cystitis, unspecified without hematuria (principal); Z46.6 Encounter for fitting and adjustment of urinary device; I10 Essential (primary) hypertension; M19.90 Unspecified osteoarthritis, unspecified site; E11.9 Type 2 diabetes mellitus without complications; E03.9 Hypothyroidism, unspecified; Z88.8 Allergy status to other drugs, medicaments and biological substances; Z79.82 Long term (current) use of aspirin; Z79.84 Long term (current) use of oral hypoglycemic drugs; Z79.899 Other long term (current) drug therapy; Z98.49 Cataract extraction status, unspecified eye; Z98.890 Other specified postprocedural states
CPT/HCPCS: 51702; 81001; 87086; 87088; 87186; 99283; 99284; A4217

== ENCOUNTER 2016-12-07 11:06 | Emergency (ER) | payer MEDICARE, OTHER ==
[2016-12-07] MEDS ORDERED: Lactated Ringers 1,000 ML IV ONE (11:16)
--- NOTE | 2016-12-07 11:26 | EDM.PDOC ---
ED HPI GENERAL MEDICAL PROBLEM - General Chief Complaint: General Stated Complaint: BLADDER INFECTION WEAKNESS Time Seen by Provider: 12/07/16 11:15 Source of Information: Reports: Patient, Family, Old Records History Limitations: Reports: No Limitations - History of Present Illness INITIAL COMMENTS - FREE TEXT/NARRATIVE: 81 yo male with indwelling hamm catheter and frequent UTI's was seen recently in the ER for a nonfunctioning catheter. A urine culture was set up and he wa empirically started on Cipro. Later, Monday of this week, cultures showed he had 2 organisms growing and one(MRSA) was resistant to Cipro so he was switched to TMP/SMZ and then deveoped diarrhea. He has had 3 loose stools so far today and is very weak. Family managed to get him to the ER via private vehicle with difficulty. No fevers. Dr. Terrazas is his doctor, he has not seen him recently. No vomiting. Abdomen distended since beginning the Cipro. Onset: Gradual Onset Date: 12/01/16 Duration: Day(s):, Getting Worse Location: Reports: Abdomen Quality: Reports: Dull Severity: Moderate Improves with: Reports: None Worsens with: Reports: Other (Time/antibiotics) Context: Reports: Other (antibiotics for Cipro) Associated Symptoms: Reports: Weakness. 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) (TMP/SMZ DS) - Related Data Allergies Allergy/AdvReac Type Severity Reaction Status Date / Time amlodipine besylate Allergy Edema Verified 11/30/16 10:32 [From [facility]] Home Meds: Home Meds Aspirin 325 mg PO DAILY 01/28/14 [History] Carvedilol 50 mg PO BID 01/29/14 [History] Levothyroxine Sodium [Synthroid] 75 mcg PO DAILY@0600 01/29/14 [History] Multivitamin [Daily Multiple Vitamin] 1 tab PO DAILY 01/29/14 [History] Amitriptyline [Elavil] 50 mg PO BEDTIME 11/06/15 [History] Carboxymethylcellulose Sodium [Refresh Tears] 1 drop EYEBOTH DAILY 11/06/15 [ History] Cyclobenzaprine [Flexeril] 5 mg PO BID 11/06/15 [History] Lisinopril 30 mg PO DAILY 11/06/15 [History] Gabapentin [Neurontin] 1,200 mg PO DAILY@14 09/14/16 [History] Gabapentin [Neurontin] 600 mg GTUBE BID 09/14/16 [History] Gluc Mcleod Dipo Ch/Jeremy Mcleod/C/Nik [Glucosamine Chondroitin Caplet] 1 tab PO BID [History] Potassium Chloride 20 meq PO TID 09/27/16 [History] Tamsulosin [Flomax] 0.8 mg PO DAILY 09/27/16 [History] metFORMIN [Glucophage] 850 mg GTUBE 2000 09/27/16 [History] Ciprofloxacin HCl [Cipro] 250 mg PO BID #14 tablet 11/30/16 [Rx] Past Medical History HEENT History: Reports: Cataract, Impaired Vision Cardiovascular History: Reports: Hypertension Respiratory History: Reports: None Gastrointestinal History: Reports: Other (See Below) Other Gastrointestinal History: PEG tube; NPO Genitourinary History: Reports: BPH, Retention, Urinary Other Genitourinary History: suprapubic cath put in 09/14/16 Musculoskeletal History: Reports: Arthritis, Back Pain, Chronic, Muscular Dystrophy Neurological History: Reports: None Psychiatric History: Reports: None Endocrine/Metabolic History: Reports: Diabetes, Type II, Hypothyroidism Hematologic History: Reports: None Immunologic History: Reports: None Oncologic (Cancer) History: Reports: None Dermatologic History: Reports: None - Infectious Disease History Infectious Disease History: Reports: Chicken Pox, Measles, MRSA, Mumps, Shingles - Past Surgical History Head Surgeries/Procedures: Reports: None HEENT Surgical History: Reports: Cataract Surgery, Naso-Sinus Surgery GI Surgical History: Reports: Colonoscopy, EGD, Other (See Below) Other GI Surgeries/Procedures: PEG tube placed Male Surgical History: Reports: Suprapubic Catheter Placement Neurological Surgical History: Reports: Laminectomy, Other (See Below) Social & Family History - Family History Family Medical History: Noncontributory - Tobacco Use Smoking Status *Q: Never Smoker Second Hand Smoke Exposure: No - Caffeine Use Caffeine Use: Reports: None - Alcohol Use Days Per Week of Alcohol Use: 1 Number of Drinks Per Day: 1 Total Drinks Per Week: 1 - Recreational Drug Use Recreational Drug Use: No Drug Use in Last 12 Months: No - Living Situation & Occupation Occupation: Retired ED ROS GENERAL - Review of Systems Review Of Systems: See Below Constitutional: Reports: Weakness, Fatigue, Decreased Appetite. Denies: Fever HEENT: Reports: No Symptoms Respiratory: Reports: No Symptoms Cardiovascular: Reports: No Symptoms Endocrine: Reports: No Symptoms GI/Abdominal: Reports: Anorexia, Diarrhea, Decreased Appetite, Distension. Denies: Black Stool, Constipation, Hematemesis, Hematochezia, Melena, Nausea, Stool Incontinence, Vomiting : Reports: No Symptoms Musculoskeletal: Reports: No Symptoms Skin: Reports: No Symptoms Neurological: Reports: No Symptoms Psychiatric: Reports: No Symptoms ED EXAM, GENERAL - Physical Exam Exam: See Below Exam Limited By: No Limitations General Appearance: Alert, WD/WN, No Apparent Distress Eye Exam: Bilateral Eye: Normal Inspection Ears: Normal External Exam, Normal Canal, Hearing Grossly Normal Ear Exam: Bilateral Ear: Auricle Normal, Canal Normal Nose: Normal Inspection, Normal Mucosa, No Blood Throat/Mouth: Normal Inspection, Normal Lips, Normal Teeth, Normal Oropharynx, Normal Voice, No Airway Compromise Head: Atraumatic, Normocephalic Neck: Normal Inspection Respiratory/Chest: No Respiratory Distress, Lungs Clear, Normal Breath Sounds, No Accessory Muscle Use Cardiovascular: Regular Rate, Rhythm GI/Abdominal: Distended (dull with percussion). No: Rebound, Tender Back Exam: Normal Inspection Extremities: Normal Inspection, Normal Range of Motion, Non-Tender, Other ( bilateral leg weakness.) Neurological: Alert, Oriented, CN II-XII Intact, Normal Cognition Psychiatric: Normal Affect, Normal Mood Skin Exam: Warm, Dry, Intact, Normal Color, No Rash Lymphatic: No Adenopathy Course - Vital Signs Text/Narrative:: LR 1000 ml bolus IV initiated. Discussed case with Dr. Avelar. Will admit at this time to him. 11:30 am. - Orders/Labs/Meds Orders: Active Orders 24 hr Category Date Time Status BASIC METABOLIC PANEL,BMP [CHEM] Stat Lab 12/07/16 11:15 Ordered CBC W/O DIFF,HEMOGRAM [HEME] Stat Lab 12/07/16 11:15 Ordered CDIFF TOXIN A+B GROUP [OP] Stat Lab 12/07/16 11:16 Uncollected TROPONIN I [CHEM] Stat Lab 12/07/16 11:16 Ordered UA W/MICROSCOPIC [URIN] Stat Lab 12/07/16 11:15 Uncollected Lactated Ringers [Ringers, Lactated] 1,000 ml Med 12/07/16 11:16 Ordered IV BOLUS Departure - Departure Time of Disposition: 11:40 Disposition: Admitted As Inpatient 67 Condition: Fair Clinical Impression: Weakness, Distended abdomen UTI (urinary tract infection) Qualifiers: Urinary tract infection type: site unspecified Hematuria presence: without hematuria Qualified Code(s): N39.0 - Urinary tract infection, site not specified Diarrhea Qualifiers: Diarrhea type: unspecified type Qualified Code(s): R19.7 - Diarrhea, unspecified - Discharge Information Forms: ED Department Discharge - My Orders Last 24 Hours: My Active Orders 12/07/16 11:15 BASIC METABOLIC PANEL,BMP [CHEM] Stat CBC W/O DIFF,HEMOGRAM [HEME] Stat UA W/MICROSCOPIC [URIN] Stat 12/07/16 11:16 CDIFF TOXIN A+B GROUP [OP] Stat TROPONIN I [CHEM] Stat Lactated Ringers [Ringers, Lactated] 1,000 ml IV BOLUS - Assessment/Plan Last 24 Hours: My Active Orders 12/07/16 11:15 BASIC METABOLIC PANEL,BMP [CHEM] Stat CBC W/O DIFF,HEMOGRAM [HEME] Stat UA W/MICROSCOPIC [URIN] Stat 12/07/16 11:16 CDIFF TOXIN A+B GROUP [OP] Stat TROPONIN I [CHEM] Stat Lactated Ringers [Ringers, Lactated] 1,000 ml IV BOLUS
[2016-12-07] MEDS ORDERED: Ondansetron 4 MG Tab.DIS PO PRN (12:25)
[2016-12-07] MEDS ORDERED: Levofloxacin/Dextrose 5%-Water 250 MG in Premix Bag 1 BAG IV SCH (12:45)
[2016-12-07] MEDS ORDERED: Sodium Chloride 0.9% 1,000 ML IV SCH (12:45)
[2016-12-07] MEDS ORDERED: Non-Formulary Medication 1 Each (Potassium Chloride [Potassium Chloride] 20 MEQ) PO SCH (14:00)
[2016-12-07] MEDS ORDERED: Gabapentin 600 MG Tab PO SCH (14:00)
[2016-12-07 14:10] VITALS: BP 170/77
--- NOTE | 2016-12-07 14:51 | CR ---
INDICATION: Distention of abdomen with diarrhea. ABDOMEN: Five images of the abdomen were obtained in supine and decubitus projections, revealing no evidence of free air. However, there is marked distention of a loop of sigmoid colon which rises out of the pelvis, having a football appearance, compatible with a significant degree of sigmoid volvulus. Gas and stool are noted in the more proximal colon and to some degree in the colon distal to the obstruction, which may be early or partial. Colonoscopy may be helpful for diagnosis and treatment. No other organomegaly, mass lesions, or free fluid collections were identified. An apparent gastric feeding tube is noted in place. IMPRESSION: Findings are compatible with sigmoid volvulus with at least a partial degree of mechanical obstruction, possibly complete early obstruction. Report was called to Dr. Browning at 1207 hours, 12/07/2016. [facility]
--- NOTE | 2016-12-07 16:34 | ER ---
DATE OF CONSULTATION: 12/07/2016 REASON FOR CONSULTATION: This 81-year-old male presents to the emergency room today with progressive weakness and abdominal bloating. The patient has been undergoing treatment over the last week for urinary tract infection. Over the last 24 hours they have noticed increased bloating and poor ability to take enteral feedings. He has had some small bowel movements, but was having multiple loose stools previously and these have essentially stopped. On evaluation, the patient was noted to have significant abdominal distention and abdominal x-rays were obtained. These show evidence of marked dilation of the sigmoid colon consistent with sigmoid volvulus. Currently, the patient has some mild symptoms of abdominal bloating, but does not have severe abdominal pain. Other diagnostic data includes an elevated serum white blood cell count of 12,900, hemoglobin of 12,600. His creatinine is 0.6, BUN is 25. Urinalysis shows increased protein and glucose. PAST MEDICAL HISTORY: Significant for diagnoses of diabetes and hypertension. He also has hypothyroidism and problems with urinary retention which has required placement of a suprapubic catheter. He has been diagnosed with muscular dystrophy as well as arthritis. PAST SURGICAL HISTORY: He has had multiple back surgeries in the past. He also has difficulty swallowing which has led him to require a feeding gastrostomy tube. PHYSICAL EXAMINATION: GENERAL: Examination shows the patient to be alert. He is in no acute distress. CARDIAC: His heart is regular. RESPIRATORY: His lungs are clear. ABDOMEN: His abdomen is distended with no rebound tenderness, but there is tenderness to direct palpation in the left side and throughout the abdomen. Gastrostomy tube and suprapubic catheter are in place. EXTREMITIES: Lower extremities show no edema. NEURO: The patient is alert and appears to have normal cognition. IMPRESSION: 1. Sigmoid volvulus. 2. Hypertension. 3. Hypothyroidism. 4. History of muscular dystrophy. 5. Urinary tract infection. 6. Hypertension. RECOMMENDATIONS: The patient will need manipulation and possibly surgery to relieve his sigmoid volvulus. I do not think the patient is a good candidate for anesthesia at this facility and will likely need specialized care both in anesthesia as well as other medical specialties. I therefore recommended that he be transferred to a tertiary care center in [place] for definitive treatment. This was discussed with the family and they agreed to have this carried out. /[id number] CASPER/GIGI BOATENG
[2016-12-07] MEDS ORDERED: Gabapentin 600 MG Tab GTUBE SCH (21:00)
[2016-12-07] MEDS ORDERED: Carvedilol 25 MG Tab PO SCH (21:00)
[2016-12-08] MEDS ORDERED: Levothyroxine 75 MCG Tab PO SCH (06:00)
[2016-12-08] MEDS ORDERED: Carboxymethylcellulose Sodium 0.5% Ophth Soln 15 ML Bottle EYEBOTH SCH (09:00)
[2016-12-08] MEDS ORDERED: Enoxaparin 40 MG/0.4 ML Syringe SUBCUT SCH (09:00)
[2016-12-08] MEDS ORDERED: Aspirin 325 MG Tab PO SCH (09:00)
[2016-12-08] MEDS ORDERED: Lisinopril 20 MG Tab PO SCH (09:00)
== END 2016-12-07 14:20 ==
LOC: FB.ED 11:06 → FB.MS 11:47 → UNDOADMIN 11:47 → FB.ED 14:20
DX: K56.2 Volvulus (principal); I10 Essential (primary) hypertension; E03.9 Hypothyroidism, unspecified; E11.9 Type 2 diabetes mellitus without complications; M19.90 Unspecified osteoarthritis, unspecified site; N39.0 Urinary tract infection, site not specified
CPT/HCPCS: 74022; 80048; 81001; 84484; 85027; 96365; 96366; 96375; 99285; J7040; J7120

== ENCOUNTER 2017-01-17 23:10 | Emergency (ER) | payer MEDICARE, OTHER ==
--- NOTE | 2017-01-17 23:20 | EDM.PDOC ---
ED HPI GENERAL MEDICAL PROBLEM - General Stated Complaint: STOMACH PAIN Time Seen by Provider: 01/17/17 23:10 Source of Information: Reports: Patient, EMS, Family History Limitations: Reports: Physical Impairment - History of Present Illness INITIAL COMMENTS - FREE TEXT/NARRATIVE: 81 years old w m witha h/o "twisted bowel" s/p parital bowel resection, came to the ed due to nausea. vomiting, worsening of the distended abdomen and mod abd. pain. Pt had a large BM [employer] and one BM here in the ed after which his symptoms improved. No N/V here in the ed. Pt has a sedentary lifestyle, is however, able to use a wheelchair. Pt is fed through a G tube. pt has a history of asp pneumonias for which a G tube was placed. pt denies other acute medical issues. BP was 188/86, RR 18, Puls ox 96% Temp 36.4 Onset: Unknown/Unsure Onset Date: 01/17/17 Onset Time: 08:00 Duration: Hour(s): Location: Reports: Abdomen, Generalized Quality: Reports: Dull, Pressure, Same as Previous Episode Severity: Moderate Improves with: Reports: Medication Worsens with: Reports: Immobilization Context: Reports: Other (h/o ischemic bowel) Treatments [employer]: Reports: Other (see below) (laxatives) - Related Data Allergies Allergy/AdvReac Type Severity Reaction Status Date / Time amlodipine besylate Allergy Edema Verified 01/17/17 23:19 [From [facility]] Home Meds: Home Meds Aspirin 325 mg PO DAILY 01/28/14 [History] Carvedilol 12.5 mg PO BID 01/29/14 [History] Levothyroxine Sodium [Synthroid] 75 mcg PO DAILY@0600 01/29/14 [History] Multivitamin [Daily Multiple Vitamin] 1 tab PO DAILY 01/29/14 [History] Amitriptyline [Elavil] 50 mg PO BEDTIME 11/06/15 [History] Carboxymethylcellulose Sodium [Refresh Tears] 1 drop EYEBOTH DAILY 11/06/15 [ History] Cyclobenzaprine [Flexeril] 5 mg PO BID 11/06/15 [History] Lisinopril 40 mg PO DAILY 11/06/15 [History] Gabapentin [Neurontin] 1,200 mg PO DAILY@14 09/14/16 [History] Gabapentin [Neurontin] 600 mg GTUBE BID 09/14/16 [History] Gluc Mcleod Dipo Ch/Jeremy Mcleod/C/Nik [Glucosamine Chondroitin Caplet] 1 tab PO BID [History] Potassium Chloride 20 meq PO TID 09/27/16 [History] metFORMIN [Glucophage] 850 mg GTUBE BID 09/27/16 [History] Acetaminophen [Tylenol] 2 tab GTUBE Q4HR PRN 01/18/17 [History] Acetaminophen [Tylenol] 2 tab GTUBE TID 01/18/17 [History] Ascorbic Acid [Vitamin C] 1 cap GTUBE DAILY 01/18/17 [History] Bisacodyl [Dulcolax] 1 dose RECTAL DAILY PRN 01/18/17 [History] Famotidine 1 tab GTUBE BID 01/18/17 [History] Levofloxacin 500 mg PO DAILY #10 ml 01/18/17 [Rx] Levofloxacin 500 mg PO DAILY 10 Days ml 01/18/17 [Rx] Magnesium Hydroxide [Milk of Magnesia] 15 ml GTUBE DAILY PRN 01/18/17 [History] Polyethylene Glycol 3350 [Miralax] 1 dose GTUBE DAILY PRN 01/18/17 [History] hydrALAZINE [Apresoline] 1 tab GTUBE BID 01/18/17 [History] Past Medical History HEENT History: Reports: Cataract, Impaired Vision Cardiovascular History: Reports: Hypertension Respiratory History: Reports: None Gastrointestinal History: Reports: Other (See Below) Other Gastrointestinal History: PEG tube; NPO Genitourinary History: Reports: BPH, Retention, Urinary Other Genitourinary History: suprapubic cath put in 09/14/16 Musculoskeletal History: Reports: Arthritis, Back Pain, Chronic, Muscular Dystrophy Neurological History: Reports: None Psychiatric History: Reports: None Endocrine/Metabolic History: Reports: Diabetes, Type II, Hypothyroidism Hematologic History: Reports: None Immunologic History: Reports: None Oncologic (Cancer) History: Reports: None Dermatologic History: Reports: None - Infectious Disease History Infectious Disease History: Reports: Chicken Pox, Measles, MRSA, Mumps, Shingles - Past Surgical History Head Surgeries/Procedures: Reports: None HEENT Surgical History: Reports: Cataract Surgery, Naso-Sinus Surgery GI Surgical History: Reports: Colonoscopy, EGD, Other (See Below) Other GI Surgeries/Procedures: PEG tube placed Male Surgical History: Reports: Suprapubic Catheter Placement Neurological Surgical History: Reports: Laminectomy, Other (See Below) Social & Family History - Family History Family Medical History: Noncontributory - Tobacco Use Smoking Status *Q: Never Smoker Second Hand Smoke Exposure: No - Caffeine Use Caffeine Use: Reports: None - Alcohol Use Days Per Week of Alcohol Use: 1 Number of Drinks Per Day: 1 Total Drinks Per Week: 1 - Recreational Drug Use Recreational Drug Use: No Drug Use in Last 12 Months: No - Living Situation & Occupation Occupation: Retired ED ROS GENERAL - Review of Systems Review Of Systems: See Below Constitutional: Reports: No Symptoms HEENT: Reports: No Symptoms Respiratory: Reports: No Symptoms Cardiovascular: Reports: No Symptoms Endocrine: Reports: No Symptoms GI/Abdominal: Reports: Constipation, Distension, Vomiting : Reports: No Symptoms Musculoskeletal: Reports: No Symptoms Skin: Reports: No Symptoms Neurological: Reports: No Symptoms, Difficulty Walking (muscle wasting due to immobility) Psychiatric: Reports: No Symptoms Hematologic/Lymphatic: Reports: No Symptoms Immunologic: Reports: No Symptoms ED EXAM, GI/ABD - Physical Exam Exam: See Below Exam Limited By: Physical Impairment General Appearance: Alert, WD/WN, Mild Distress, Obese Eyes: Bilateral: Normal Appearance Ears: Normal External Exam Nose: Normal Inspection Throat/Mouth: Normal Inspection Head: Atraumatic, Normocephalic Neck: Normal Inspection, Supple Respiratory/Chest: No Respiratory Distress, Rhonchi Cardiovascular: Normal Peripheral Pulses, Regular Rate, Rhythm, No Edema, No Gallop GI/Abdominal Exam: Distended, Tender, Abnormal Bowel Sounds (Male) Exam: Deferred Rectal (Males) Exam: Deferred Back Exam: Normal Inspection, Full Range of Motion Extremities: Limited Range of Motion Neurological: Alert, Oriented, CN II-XII Intact, Normal Cognition, Abnormal Gait (unable to ambulate) Psychiatric: Normal Affect, Normal Mood Skin Exam: Warm, Dry, Intact, Normal Color Lymphatic: No Adenopathy Course - Vital Signs Text/Narrative:: 81 years old w m witha h/o "twisted bowel" s/p parital bowel resection, came to the ed due to nausea. vomiting, worsening of the distended abdomen and mod abd. pain. Pt had a large BM [employer] and one BM here in the ed after which his symptoms improved. No N/V here in the ed. Pt has a sedentary lifestyle, is however, able to use a wheelchair. Pt is fed through a G tube. pt has a history of asp pneumonias for which a G tube was placed. pt denies other acute medical issues. BP was 188/86, RR 18, Puls ox 96% Temp 36.4 PE: Distended abb. well healing surgical scars. There is a minor superficially open scar which appears to be healing. Imaging: Abd. Distended LB and constipation. CT abd: Severe constipation, left lower lobe pneumonia. Labs: WBC 19.5K BCx pending Impression: Pneumonia, Constipation Tx: Rocephin, Reexam: Pt did well here in the ed after he had a BM. Arrangements were made to d/c pt back to the [facility] with instructions. Last Recorded V/S: Last Vital Signs Temp 36.9 C 01/18/17 02:16 Pulse 84 01/18/17 06:25 Resp 16 01/18/17 02:16 BP 180/80 H 01/18/17 06:25 Pulse Ox 96 01/18/17 02:16 - Orders/Labs/Meds Orders: Active Orders 24 hr Category Date Time Status Abdomen 1V Flat [CR] Stat Exams 01/17/17 23:12 Taken Abdomen Pelvis wo Cont [CT] Stat Exams 01/18/17 00:59 Taken Chest 1V Frontal [CR] Stat Exams 01/17/17 23:37 Taken CULTURE BLOOD [BC] Urgent Lab 01/18/17 01:15 Received CULTURE BLOOD [BC] Urgent Lab 01/18/17 01:20 Received Blood Culture x2 Reflex Set [OM.PC] Urgent Oth 01/18/17 00:59 Ordered Labs: Laboratory Tests 01/17/17 01/17/17 01/18/17 Range/Units 23:35 23:35 00:00 WBC 19.5 H (4.5-12.0) X10-3/uL RBC 4.58 (4.30-5.75) x10(6)uL Hgb 13.7 (11.5-15.5) g/dL Hct 40.7 (30.0-51.3) % MCV 89.0 (80-96) fL MCH 29.9 (27.7-33.6) pg MCHC 33.6 (32.2-35.4) g/dL RDW 13.7 (11.5-15.5) % Plt Count 231 (125-369) X10(3)uL MPV 8.5 (7.4-10.4) fL Add Manual Diff Yes Neutrophils % (Manual) 87 H (46-82) % Band Neutrophils % 2 (0-6) % Lymphocytes % (Manual) 8 L (13-37) % Monocytes % (Manual) 3 L (4-12) % Sodium 138 (135-145) mmol/L Potassium 3.8 (3.5-5.3) mmol/L Chloride 98 L D (100-110) mmol/L Carbon Dioxide 30 H (23-29) mmol/L BUN 22 (8-23) mg/dL Creatinine 0.5 L (0.6-1.3) mg/dL Est Cr Clr Drug Dosing TNP Estimated GFR (MDRD) > 60 (>60) BUN/Creatinine Ratio 44.0 H (9-20) Glucose 220 H D (80-116) mg/dL Calcium 9.4 (8.6-10.2) mg/dL Urine Color Yellow (YELLOW) Urine Appearance Slightly cloudy (CLEAR) Urine pH 8.0 H (5.0-6.5) Ur Specific Bowie 1.015 (1.010-1.025) Urine Protein Negative (NEGATIVE) mg/dL Urine Glucose (UA) 250 H (NEGATIVE) mg/dL Urine Ketones Negative (NEGATIVE) mg/dL Urine Occult Blood Moderate H (NEGATIVE) Urine Nitrite Negative (NEGATIVE) Urine Bilirubin Negative (NEGATIVE) Urine Urobilinogen Normal (NEGATIVE) mg/dL Ur Leukocyte Esterase Large H (NEGATIVE) Urine RBC 0-5 (0) Urine WBC 0-5 (0) Ur Squamous Epith Cells Occasional (NS,R,O) Amorphous Sediment Few Urine Bacteria Few H (NS) Meds: Medications Discontinued Medications Generic Name Dose Route Start Last Admin Trade Name Freq PRN Reason Stop Dose Admin Ceftriaxone Sodium 1,000 mg/ 50 mls @ 100 mls/hr 01/18/17 00:59 01/18/17 01: 45 Sodium Chloride IV 01/18/17 01:28 100 mls/hr ONETIME ONE Administration Departure - Departure Time of Disposition: 08:24 Disposition: Home, Self-Care 01 Condition: Good Clinical Impression: Constipation by delayed colonic transit Pneumonia Qualifiers: Pneumonia type: due to unspecified organism Laterality: left Lung location: lower lobe of lung Qualified Code(s): J18.1 - Lobar pneumonia, unspecified organism - Discharge Information Prescriptions: Levofloxacin 500 mg PO DAILY #10 ml Levofloxacin 500 mg PO DAILY 10 Days ml Referrals: Renato Terrazas MD [Primary Care Provider] - Forms: ED Department Discharge Additional Instructions: Please apply fleets enemas as needed, please take levofloxacin as recmmended, please f/u, come back if worse. - My Orders Last 24 Hours: My Active Orders 01/17/17 23:12 Abdomen 1V Flat [CR] Stat 01/17/17 23:37 Chest 1V Frontal [CR] Stat 01/18/17 00:59 Abdomen Pelvis wo Cont [CT] Stat Blood Culture x2 Reflex Set [OM.PC] Urgent 01/18/17 01:15 CULTURE BLOOD [BC] Urgent 01/18/17 01:20 CULTURE BLOOD [BC] Urgent - Assessment/Plan Last 24 Hours: My Active Orders 01/17/17 23:12 Abdomen 1V Flat [CR] Stat 01/17/17 23:37 Chest 1V Frontal [CR] Stat 01/18/17 00:59 Abdomen Pelvis wo Cont [CT] Stat Blood Culture x2 Reflex Set [OM.PC] Urgent 01/18/17 01:15 CULTURE BLOOD [BC] Urgent 01/18/17 01:20 CULTURE BLOOD [BC] Urgent
[2017-01-18] MEDS ORDERED: cefTRIAXone 1,000 MG in Sodium Chloride 0.9% 50 ML IV ONE (00:59)
[2017-01-18 10:10] VITALS: BP 179/97
--- NOTE | 2017-01-18 11:06 | CR ---
INDICATION: Distended abdomen. CHEST: An AP view of the chest was obtained 01/17/2017 and was compared with . Very poor inspiration is noted, emphasizing the heart, which may be slightly enlarged. There appears to be infiltration posterior to the heart, perhaps less prominently than on the previous examination. Additional examination such as PA and lateral views of the chest or possibly CT of the chest may be helpful in the case of a possible recurrent infiltrate in the left lower lobe. Heavy markings are also present in the right upper middle lung field, but are emphasized by the poor inspiration. No gross consolidating pneumonia or definite effusion was seen. The aorta is somewhat tortuous. Degenerative changes are noted in the spine. The lungs appear to be somewhat hyperaerated. IMPRESSION: Findings suggest the possibility of an infiltrate in the left lower lobe and possibly in the upper middle lung field on the right. Poor inspiration emphasizes markings and full inspiration PA and lateral view examination of the chest may be helpful for further evaluation. MTDD
== END 2017-01-18 09:48 | disposition home or self-care (01) ==
LOC: FB.ED 23:10
DX: K59.01 Slow transit constipation (principal); I10 Essential (primary) hypertension; E11.9 Type 2 diabetes mellitus without complications; E03.9 Hypothyroidism, unspecified; M19.90 Unspecified osteoarthritis, unspecified site; J18.9 Pneumonia, unspecified organism; Z79.82 Long term (current) use of aspirin; Z79.899 Other long term (current) drug therapy; Z88.8 Allergy status to other drugs, medicaments and biological substances
CPT/HCPCS: 36415; 71010; 74000; 74176; 80048; 81001; 83605; 85025; 87040; 96365; 99285; J0696; J7050; 99284